=== PATIENT | male | born 1955 | race Caucasian/White ===

== ENCOUNTER 2020-08-21 13:06 | Inpatient (IN) | payer MEDICARE, MEDICAID ==
[2020-08-21 13:54] LABS: #Eosinphils 0.1 thou/uL (0.0-0.7); #Lymphocytes 1.9 thou/uL (1.20-3.40); #Monocytes 0.7 thou/uL (0.11-0.59); #Neutrophils 5.4 thou/uL (1.40-6.50); %Basophils 0.2 % (0.0-1.0); %Eosinophils 1.2 % (0.0-10.0); %Lymphocytes 23.7 % (21.0-51.0); %Monocytes 8.6 % (0.0-10.0); %Neutrophils 66.3 % (42.0-75.0); Hemoglobin 12.9 g/dL (14.0-18.0); Mean Corpuscular Hemoglobin 31.9 pg (27.0-31.0); Mean Corpuscular Volume 96.5 fL (78.0-98.0); Mean Platelet Volume 7.8 fL (7.4-10.4); Platelet Count 215 thou/uL (130-400); RBC Distribution Width 12.6 % (11.5-14.5); Red Blood Cell (RBC) Count 4.04 mill/uL (4.70-6.10); White Blood Cell (WBC) Count 8.1 thou/uL (4.8-10.8)
[2020-08-21] MEDS ORDERED: levETIRAcetam in NS 1,500 MG in Premix Bag 1 BAG IVPB SCH (14:00)
[2020-08-21 14:11] LABS: ALT (SGPT) 8 U/L (8-55); AST (SGOT) 13 U/L (5-34); Albumin 3.3 g/dL (3.4-4.8); Alkaline Phosphatase 72 U/L (40-110); Anion Gap 12 mmol/L (10-20); BUN (Urea Nitrogen) 23 mg/dL (8.4-25.7); Bilirubin, Total 0.5 mg/dL (0.2-1.2); CK (CPK) 49 U/L (30-200); Calc. Creatinine Clearance 0 mL/min (70-130); Calcium 8.4 mg/dL (7.8-10.44); Carbon Dioxide 26 mmol/L (23-31); Chloride 106 mmol/L (98-107); Globulin 2.9 g/dL (2.4-3.5); Glucose 86 mg/dL (80-115); Lipase 31 U/L (8-78); Potassium 4.1 mmol/L (3.5-5.1); Protein, Total 6.2 g/dL (5.8-8.1); Sodium 140 mmol/L (136-145)
[2020-08-21 17:17] LABS: Bacteria/HPF None Seen HPF (None Seen); Bilirubin Negative (Negative); Blood, Urine 3+ (Negative); Clarity Clear (Clear); Glucose, Urine (Dipstick) Normal (Negative); Ketone, Urine Negative (Negative); Leukocyte Negative Leu/uL (Negative); Nitrite Negative (Negative); Protein, Urine (Dipstick) 70 mg/dL (Neg-Trace); Specific Gravity, Urine 1.012 (1.002-1.036); Squamous Epithelial None Seen HPF (0-3); Urobilinogen Normal mg/dL (Less than 2); WBC/HPF 0-3 HPF (0-3); pH, Urine 6.5 (5.0-9.0)
[2020-08-21] MEDS ORDERED: Lorazepam 2 MG/ML VIAL SLOW IVP PRN (17:17)
[2020-08-21 17:28] LABS: Troponin I Less than 0.010 ng/mL (< 0.028)
[2020-08-21] MEDS ORDERED: traMADol HCl 50 MG TAB PO SCH (17:45)
[2020-08-21] MEDS ORDERED: traMADol HCl 50 MG TAB ONE (17:50)
[2020-08-21] MEDS ORDERED: HYDROcodone/Acetaminophen 5/325 mg Tablet ONE (20:04)
[2020-08-21] MEDS: Sodium Chloride 0.9% 1,000 ML IV SCH (20:09)
[2020-08-21] MEDS: HYDROcodone/Acetaminophen 5/325 mg Tablet PO PRN (20:10)
[2020-08-21 20:24] LABS: Troponin I Less than 0.010 ng/mL (< 0.028)
[2020-08-21] MEDS ORDERED: Ondansetron PF 4 MG/2 ML Vial IVP PRN (21:30)
[2020-08-21] MEDS ORDERED: Ondansetron ODT 4 MG TAB SL PRN (21:30)
[2020-08-21] MEDS ORDERED: Acetaminophen 325 MG TAB PO PRN (21:30)
[2020-08-21 22:01] VITALS: BMI 18.3
[2020-08-22 02:16] LABS: SARS-CoV-2 PCR by NAA Not Detected (NotDetected)
[2020-08-22] MEDS ORDERED: Labetalol HCl 100 MG/20 ML VIAL SLOW IVP PRN (03:54)
[2020-08-22 06:53] LABS: #Eosinphils 0.1 thou/uL (0.0-0.7); #Lymphocytes 2.3 thou/uL (1.20-3.40); #Monocytes 0.6 thou/uL (0.11-0.59); #Neutrophils 4.2 thou/uL (1.40-6.50); %Basophils 0.3 % (0.0-1.0); %Eosinophils 1.9 % (0.0-10.0); %Lymphocytes 31.4 % (21.0-51.0); %Monocytes 8.7 % (0.0-10.0); %Neutrophils 57.7 % (42.0-75.0); Hemoglobin 11.9 g/dL (14.0-18.0); Mean Corpuscular HGB CONC 32.5 g/dL (32.0-36.0); Mean Corpuscular Hemoglobin 31.7 pg (27.0-31.0); Mean Corpuscular Volume 97.6 fL (78.0-98.0); Mean Platelet Volume 7.9 fL (7.4-10.4); Platelet Count 200 thou/uL (130-400); RBC Distribution Width 12.6 % (11.5-14.5); Red Blood Cell (RBC) Count 3.74 mill/uL (4.70-6.10); White Blood Cell (WBC) Count 7.3 thou/uL (4.8-10.8)
[2020-08-22 07:13] LABS: Anion Gap 11 mmol/L (10-20); BUN (Urea Nitrogen) 18 mg/dL (8.4-25.7); Calc. Creatinine Clearance 34 mL/min (70-130); Calcium 8.1 mg/dL (7.8-10.44); Carbon Dioxide 26 mmol/L (23-31); Chloride 107 mmol/L (98-107); Glucose 88 mg/dL (80-115); Magnesium 1.9 mg/dL (1.6-2.6); Potassium 3.8 mmol/L (3.5-5.1); Sodium 140 mmol/L (136-145)
[2020-08-22] MEDS: HYDROcodone/Acetaminophen 5/325 mg Tablet PO PRN (11:36)
[2020-08-22] MEDS: Sodium Chloride 0.9% 1,000 ML IV SCH (15:31)
[2020-08-22] MEDS ORDERED: Morphine 4 MG/ML VIAL SLOW IVP PRN (15:49)
[2020-08-22] MEDS ORDERED: Morphine 4 MG/ML VIAL SLOW IVP SCH (16:00)
[2020-08-22] MEDS: levETIRAcetam 500 MG TAB PO SCH (20:27)
[2020-08-22] MEDS: traMADol HCl 50 MG TAB PO SCH (20:28)
[2020-08-22] MEDS: Baclofen 10 MG TAB PO SCH (20:28)
[2020-08-22] MEDS ORDERED: Tamsulosin HCl 0.4 MG CAP PO SCH (21:00)
[2020-08-22] MEDS ORDERED: traZODone HCl 50 MG TAB PO SCH (21:00)
[2020-08-22] MEDS ORDERED: Atorvastatin Calcium 10 MG TAB PO SCH (21:00)
[2020-08-23 05:39] LABS: Hemoglobin 11.7 g/dL (14.0-18.0); Platelet Count 188 thou/uL (130-400)
[2020-08-23 06:00] LABS: Anion Gap 10 mmol/L (10-20); BUN (Urea Nitrogen) 20 mg/dL (8.4-25.7); Calc. Creatinine Clearance 36 mL/min (70-130); Carbon Dioxide 25 mmol/L (23-31); Chloride 107 mmol/L (98-107); Glucose 95 mg/dL (80-115); Potassium 3.7 mmol/L (3.5-5.1); Sodium 138 mmol/L (136-145)
[2020-08-23] MEDS ORDERED: Levothyroxine Sodium 112 MCG TAB PO SCH (06:00)
[2020-08-23 07:44] VITALS: BP 148/89; TEMP 97.8
[2020-08-23] MEDS: levETIRAcetam 500 MG TAB PO SCH (08:24)
[2020-08-23] MEDS: Baclofen 10 MG TAB PO SCH (08:24)
[2020-08-23] MEDS ORDERED: Bupropion 150 MG XL TAB PO SCH (09:00)
[2020-08-23] MEDS ORDERED: Amlodipine 5 MG TAB PO SCH (09:00)
[2020-08-23] MEDS ORDERED: Aripiprazole 2 MG TAB PO SCH (09:00)
[2020-08-23] MEDS ORDERED: Docusate 100 MG CAP PO SCH (09:00)
[2020-08-23] MEDS: traMADol HCl 50 MG TAB PO SCH (09:52)
[2020-08-23] MEDS ORDERED: Rivaroxaban 10 MG TAB PO SCH (17:00)
== END 2020-08-23 11:00 | disposition home or self-care (01) | DRG 101 ==
LOC: ERS 13:06 → ERHOLD 15:01 → 2SE 21:33 → OBSVTOIN 08-22 20:15
PROVIDERS: ADMIT Internal Medicine; ATTEND Family Medicine
DX: G40.909 Epilepsy, unspecified, not intractable, without status epilepticus (principal); I48.20 Chronic atrial fibrillation, unspecified; I69.951 Hemiplegia and hemiparesis following unspecified cerebrovascular disease affecting right dominant side; N17.9 Acute kidney failure, unspecified; Z20.822 Contact with and (suspected) exposure to COVID-19; F12.10 Cannabis abuse, uncomplicated; G89.29 Other chronic pain; J44.9 Chronic obstructive pulmonary disease, unspecified; N18.30 Chronic kidney disease, stage 3 unspecified; I12.9 Hypertensive chronic kidney disease with stage 1 through stage 4 chronic kidney disease, or unspecified chronic kidney disease; M79.606 Pain in leg, unspecified; Z79.890 Hormone replacement therapy; Z79.899 Other long term (current) drug therapy; Z79.01 Long term (current) use of anticoagulants; Z95.1 Presence of aortocoronary bypass graft; Z79.51 Long term (current) use of inhaled steroids
CPT/HCPCS: 36415; 70450; 71045; 80048; 80053; 80177; 81003; 81015; 82550; 83605; 83690; 83735; 83880; 84146; 84443; 84484; 85014; 85018; 85025; 85049; 87635; 93005; 96365; 96374; G0378; J1953; J2270; U0003; U0005

== ENCOUNTER 2020-09-22 19:42 | Emergency (ER) | payer OTHER, MEDICARE, MEDICAID ==
[2020-09-22] MEDS ORDERED: Ketorolac Tromethamine 30 MG/ML VIAL ONE (20:11)
[2020-09-22] MEDS ORDERED: Morphine 4 MG/ML VIAL ONE (20:11)
[2020-09-22 20:18] LABS: #Eosinphils 0.1 thou/uL (0.0-0.7); #Lymphocytes 1.7 thou/uL (1.20-3.40); #Monocytes 0.8 thou/uL (0.11-0.59); #Neutrophils 7.3 thou/uL (1.40-6.50); %Basophils 0.3 % (0.0-1.0); %Eosinophils 1.3 % (0.0-10.0); %Lymphocytes 17.2 % (21.0-51.0); %Monocytes 7.6 % (0.0-10.0); %Neutrophils 73.6 % (42.0-75.0); Hemoglobin 12.2 g/dL (14.0-18.0); Mean Corpuscular HGB CONC 34.2 g/dL (32.0-36.0); Mean Corpuscular Hemoglobin 33.2 pg (27.0-31.0); Mean Corpuscular Volume 97.2 fL (78.0-98.0); Mean Platelet Volume 7.8 fL (7.4-10.4); Platelet Count 172 thou/uL (130-400); RBC Distribution Width 12.6 % (11.5-14.5); Red Blood Cell (RBC) Count 3.66 mill/uL (4.70-6.10); White Blood Cell (WBC) Count 9.9 thou/uL (4.8-10.8)
[2020-09-22 20:39] LABS: ALT (SGPT) 7 U/L (8-55); AST (SGOT) 13 U/L (5-34); Albumin 3.5 g/dL (3.4-4.8); Alkaline Phosphatase 59 U/L (40-110); Anion Gap 13 mmol/L (10-20); BUN (Urea Nitrogen) 21 mg/dL (8.4-25.7); Bilirubin, Total 0.7 mg/dL (0.2-1.2); Calc. Creatinine Clearance 0 mL/min (70-130); Calcium 8.6 mg/dL (7.8-10.44); Carbon Dioxide 25 mmol/L (23-31); Chloride 104 mmol/L (98-107); Globulin 2.5 g/dL (2.4-3.5); Glucose 100 mg/dL (80-115); Potassium 4.7 mmol/L (3.5-5.1); Sodium 137 mmol/L (136-145)
[2020-09-22] MEDS ORDERED: HYDROcodone/Acetaminophen 5/325 mg Tablet ONE (22:19)
[2020-09-22 22:28] LABS: Bacteria/HPF None Seen HPF (None Seen); Bilirubin Negative (Negative); Blood, Urine 2+ (Negative); Clarity Clear (Clear); Glucose, Urine (Dipstick) Normal (Negative); Ketone, Urine Negative (Negative); Leukocyte Negative Leu/uL (Negative); Nitrite Negative (Negative); Protein, Urine (Dipstick) Negative (Neg-Trace); RBC/HPF 21-50 HPF (0-3); Specific Gravity, Urine 1.012 (1.002-1.036); Squamous Epithelial None Seen HPF (0-3); Urobilinogen Normal mg/dL (Less than 2); WBC/HPF 0-3 HPF (0-3)
== END 2020-09-22 22:34 | disposition home or self-care (01) ==
LOC: ERS 19:42
DX: S22.31XA Fracture of one rib, right side, initial encounter for closed fracture (principal); J69.0 Pneumonitis due to inhalation of food and vomit; I10 Essential (primary) hypertension; J44.9 Chronic obstructive pulmonary disease, unspecified; I48.91 Unspecified atrial fibrillation; Z86.73 Personal history of transient ischemic attack (TIA), and cerebral infarction without residual deficits; Z87.891 Personal history of nicotine dependence; Z79.899 Other long term (current) drug therapy; W01.0XXA Fall on same level from slipping, tripping and stumbling without subsequent striking against object, initial encounter
CPT/HCPCS: 36415; 71260; 74177; 80053; 81003; 81015; 85025; 96374; 96375; J1885; J2270

== ENCOUNTER 2022-04-13 22:55 | Inpatient (IN) | payer MEDICARE, MEDICAID ==
[2022-04-13 23:53] LABS: #Eosinphils 0.2 thou/uL (0.0-0.7); #Lymphocytes 1.7 thou/uL (1.20-3.40); #Monocytes 0.8 thou/uL (0.11-0.59); #Neutrophils 3.4 thou/uL (1.40-6.50); %Basophils 0.2 % (0.0-1.0); %Eosinophils 2.6 % (0.0-10.0); %Lymphocytes 27.8 % (21.0-51.0); %Monocytes 12.8 % (0.0-10.0); %Neutrophils 56.6 % (42.0-75.0); Hemoglobin 10.6 g/dL (14.0-18.0); Mean Corpuscular HGB CONC 33.4 g/dL (32.0-36.0); Mean Corpuscular Hemoglobin 32.4 pg (27.0-31.0); Mean Platelet Volume 7.5 fL (7.4-10.4); Platelet Count 197 10x3/uL (130-400); RBC Distribution Width 14.8 % (11.5-14.5); Red Blood Cell (RBC) Count 3.27 mill/uL (4.70-6.10)
[2022-04-14] MEDS ORDERED: Labetalol HCl 100 MG/20 ML VIAL ONE (00:03)
[2022-04-14 00:14] LABS: ALT (SGPT) 16 U/L (8-55); AST (SGOT) 23 U/L (5-34); Albumin 3.7 g/dL (3.4-4.8); Alkaline Phosphatase 69 U/L (40-110); Anion Gap 15 mmol/L (10-20); BUN (Urea Nitrogen) 72 mg/dL (8.4-25.7); Bilirubin, Total 0.7 mg/dL (0.2-1.2); Calc. Creatinine Clearance 0 mL/min (70-130); Calcium 8.7 mg/dL (7.8-10.44); Carbon Dioxide 25 mmol/L (23-31); Chloride 101 mmol/L (98-107); Estimated GFR 27; Globulin 3.3 g/dL (2.4-3.5); Glucose 101 mg/dL (80-115); Potassium 4.7 mmol/L (3.5-5.1); Sodium 136 mmol/L (136-145)
[2022-04-14 00:36] LABS: CKMB 2.7 ng/mL (0-6.6)
[2022-04-14] MEDS ORDERED: Ondansetron PF 4 MG/2 ML Vial ONE (00:38)
[2022-04-14 01:03] LABS: SARS-CoV-2 NAA Rapid Test Not Detected (NotDetected)
[2022-04-14] MEDS ORDERED: Furosemide 40 MG/4 ML VIAL ONE (01:52)
[2022-04-14] MEDS ORDERED: Furosemide 20 MG/2 ML VIAL ONE (01:52)
[2022-04-14] MEDS ORDERED: Ondansetron ODT 4 MG TAB PO PRN (02:45)
[2022-04-14] MEDS ORDERED: Ondansetron PF 4 MG/2 ML Vial IVP PRN (02:45)
[2022-04-14] MEDS ORDERED: Morphine 2 MG/ML VIAL SLOW IVP SCH (03:30)
[2022-04-14] MEDS ORDERED: Morphine 2 MG/ML VIAL ONE (03:39)
[2022-04-14 03:44] LABS: Troponin I 0.044 ng/mL (< 0.028)
[2022-04-14] MEDS ORDERED: Electrolyte Replacement Protocol 1 EACH FS SCH (04:00)
[2022-04-14] MEDS ORDERED: LORazepam 2 MG/ML SYR.(CARPUJECT) ONE ×2 (04:43→04:46)
[2022-04-14] MEDS ORDERED: Lorazepam 2 MG/ML VIAL SLOW IVP SCH (04:45)
[2022-04-14] MEDS ORDERED: Haloperidol Lactate 5 MG/ML VIAL ONE (04:46)
[2022-04-14] MEDS: Levothyroxine Sodium 112 MCG TAB PO SCH (06:24)
[2022-04-14 07:32] LABS: Magnesium 2.3 mg/dL (1.6-2.6)
[2022-04-14 07:36] LABS: Troponin I 0.039 ng/mL (< 0.028)
[2022-04-14] MEDS ORDERED: levETIRAcetam 500 MG TAB PO SCH (09:00)
[2022-04-14] MEDS ORDERED: Furosemide 20 MG TAB PO SCH (09:00)
[2022-04-14] MEDS ORDERED: Atorvastatin Calcium 10 MG TAB PO SCH ×2 (09:00→21:00)
[2022-04-14] MEDS ORDERED: Folic Acid 1 MG TAB PO SCH (18:15)
[2022-04-14] MEDS ORDERED: Rivaroxaban 10 MG TAB PO SCH (18:15)
[2022-04-14] MEDS ORDERED: Aspirin 81 mg Enteric Coated Tablet PO SCH (18:15)
[2022-04-14] MEDS ORDERED: Tamsulosin HCl 0.4 MG CAP PO SCH (21:00)
[2022-04-14] MEDS: Isosorbide Dinitrate 20 MG TAB PO SCH (21:33)
[2022-04-14] MEDS: levETIRAcetam 500 MG TAB PO SCH (21:33)
[2022-04-14] MEDS: Carvedilol 6.25 MG TAB PO SCH (21:33)
[2022-04-14] MEDS: hydrALAZINE 25 MG TAB PO SCH (21:35)
[2022-04-14 22:41] LABS: Bilirubin Negative (Negative); Blood, Urine 2+ (Negative); Clarity Clear (Clear); Glucose, Urine (Dipstick) Normal (Negative); Ketone, Urine Negative (Negative); Leukocyte Negative Leu/uL (Negative); Nitrite Negative (Negative); Protein, Urine (Dipstick) 300 mg/dL (Neg-Trace); Specific Gravity, Urine 1.015 (1.002-1.036); Squamous Epithelial 0-3 HPF (0-3); Urobilinogen Normal mg/dL (Less than 2); WBC/HPF 0-3 HPF (0-3)
[2022-04-14 22:48] LABS: Bacteria/HPF None Seen HPF (None Seen)
[2022-04-15] MEDS: Aspirin 81 mg Enteric Coated Tablet PO SCH ×2 (00:17→08:55)
[2022-04-15] MEDS: Folic Acid 1 MG TAB PO SCH ×2 (00:19→08:57)
[2022-04-15] MEDS: Rivaroxaban 10 MG TAB PO SCH ×2 (00:19→08:55)
[2022-04-15] MEDS: hydrALAZINE 25 MG TAB PO SCH ×3 (00:19→14:52)
[2022-04-15] MEDS: Furosemide 20 MG/2 ML VIAL SLOW IVP SCH ×2 (00:19→08:58)
[2022-04-15] MEDS: Carvedilol 6.25 MG TAB PO SCH ×3 (00:20→08:56)
[2022-04-15] MEDS: Isosorbide Dinitrate 20 MG TAB PO SCH ×3 (00:21→14:53)
[2022-04-15 05:06] LABS: #Eosinphils 0.2 thou/uL (0.0-0.7); #Lymphocytes 1.3 thou/uL (1.20-3.40); #Monocytes 0.8 thou/uL (0.11-0.59); #Neutrophils 4.7 thou/uL (1.40-6.50); %Basophils 0.5 % (0.0-1.0); %Lymphocytes 18.2 % (21.0-51.0); %Neutrophils 67.4 % (42.0-75.0); Hemoglobin 9.8 g/dL (14.0-18.0); Mean Corpuscular HGB CONC 32.8 g/dL (32.0-36.0); Mean Corpuscular Hemoglobin 31.9 pg (27.0-31.0); Mean Platelet Volume 7.7 fL (7.4-10.4); Platelet Count 186 10x3/uL (130-400); RBC Distribution Width 15.1 % (11.5-14.5); Red Blood Cell (RBC) Count 3.07 mill/uL (4.70-6.10); White Blood Cell (WBC) Count 6.9 10x3/uL (4.8-10.8)
[2022-04-15] MEDS: Levothyroxine Sodium 112 MCG TAB PO SCH (05:28)
[2022-04-15 05:29] LABS: Anion Gap 13 mmol/L (10-20); BUN (Urea Nitrogen) 72 mg/dL (8.4-25.7); Calc. Creatinine Clearance 23 mL/min (70-130); Calcium 8.2 mg/dL (7.8-10.44); Carbon Dioxide 23 mmol/L (23-31); Chloride 102 mmol/L (98-107); Estimated GFR 26; Glucose 118 mg/dL (80-115); Magnesium 2.1 mg/dL (1.6-2.6); Potassium 4.3 mmol/L (3.5-5.1); Sodium 134 mmol/L (136-145)
[2022-04-15 05:36] VITALS: BMI 19.3
[2022-04-15] MEDS: HYDROcodone/Acetaminophen 7.5/325 mg Tablet PO PRN ×2 (06:16→15:09)
[2022-04-15] MEDS: levETIRAcetam 500 MG TAB PO SCH (08:57)
[2022-04-15 12:21] VITALS: TEMP 97.4
[2022-04-15 14:09] VITALS: BP 115/70
[2022-04-16] MEDS ORDERED: Rivaroxaban 15 MG TAB PO SCH (17:00)
[2022-04-17] MEDS ORDERED: FLU VACC QS2022-23(65YR UP)/PF 240 MCG/0.7 ML SYRINGE IM ONE (09:00)
== END 2022-04-15 15:40 | disposition home or self-care (01) | DRG 291 ==
LOC: ERS 22:55 → OBSVTOIN 04-14 02:50 → ERHOLD 04-14 02:50 → 2NO 04-14 20:55
PROVIDERS: ADMIT Student in an Organized Health Care Education/Training Program; ATTEND Internal Medicine
DX: I13.0 Hypertensive heart and chronic kidney disease with heart failure and stage 1 through stage 4 chronic kidney disease, or unspecified chronic kidney disease (principal); I50.23 Acute on chronic systolic (congestive) heart failure; R64 Cachexia; I69.951 Hemiplegia and hemiparesis following unspecified cerebrovascular disease affecting right dominant side; Z68.1 Body mass index [BMI] 19.9 or less, adult; J96.11 Chronic respiratory failure with hypoxia; I48.91 Unspecified atrial fibrillation; I25.10 Atherosclerotic heart disease of native coronary artery without angina pectoris; G40.909 Epilepsy, unspecified, not intractable, without status epilepticus; D63.1 Anemia in chronic kidney disease; E78.5 Hyperlipidemia, unspecified; F32.A Depression, unspecified; N18.30 Chronic kidney disease, stage 3 unspecified; E03.9 Hypothyroidism, unspecified; Z99.2 Dependence on renal dialysis; Z79.82 Long term (current) use of aspirin; Z79.899 Other long term (current) drug therapy; Z95.1 Presence of aortocoronary bypass graft
CPT/HCPCS: 36415; 71045; 80048; 80053; 81001; 82553; 83735; 83880; 84484; 85025; 86140; 93005; 96374; 96375; 96376; G0378; J1630; J1940; J2060; J2272; J2405

== ENCOUNTER 2022-05-06 20:35 | Inpatient (IN) | payer MEDICARE, MEDICAID ==
[2022-05-06 21:43] LABS: #Lymphocytes 0.9 thou/uL (1.20-3.40); #Monocytes 0.3 thou/uL (0.11-0.59); #Neutrophils 4.4 thou/uL (1.40-6.50); %Basophils 0.1 % (0.0-1.0); %Eosinophils 0.7 % (0.0-10.0); %Lymphocytes 15.6 % (21.0-51.0); %Monocytes 5.5 % (0.0-10.0); %Neutrophils 78.1 % (42.0-75.0); Hemoglobin 10.8 g/dL (14.0-18.0); Mean Corpuscular HGB CONC 32.3 g/dL (32.0-36.0); Mean Corpuscular Hemoglobin 30.4 pg (27.0-31.0); Mean Corpuscular Volume 94.2 fl (78.0-98.0); Mean Platelet Volume 7.5 fL (7.4-10.4); Platelet Count 190 10x3/uL (130-400); RBC Distribution Width 15.2 % (11.5-14.5); Red Blood Cell (RBC) Count 3.57 mill/uL (4.70-6.10); White Blood Cell (WBC) Count 5.7 10x3/uL (4.8-10.8)
[2022-05-06] MEDS ORDERED: Morphine 4 MG/ML VIAL ONE (21:48)
[2022-05-06 21:55] LABS: INR-International Normal Ratio 2.4; PTT 38.6 sec (22.9-36.1); Prothrombin Time 27.5 sec (12.0-14.7)
[2022-05-06 22:03] LABS: ALT (SGPT) 29 U/L (8-55); AST (SGOT) 27 U/L (5-34); Albumin 3.6 g/dL (3.4-4.8); Alkaline Phosphatase 69 U/L (40-110); Anion Gap 14 mmol/L (10-20); BUN (Urea Nitrogen) 70 mg/dL (8.4-25.7); Bilirubin, Total 0.8 mg/dL (0.2-1.2); CK (CPK) 175 U/L (30-200); Calc. Creatinine Clearance 0 mL/min (70-130); Calcium 8.6 mg/dL (7.8-10.44); Carbon Dioxide 22 mmol/L (23-31); Chloride 103 mmol/L (98-107); Estimated GFR 25; Globulin 3.2 g/dL (2.4-3.5); Glucose 140 mg/dL (80-115); Potassium 5.1 mmol/L (3.5-5.1); Protein, Total 6.8 g/dL (5.8-8.1); Sodium 134 mmol/L (136-145)
[2022-05-06 22:40] LABS: CKMB 4.4 ng/mL (0-6.6)
[2022-05-06 23:26] LABS: Lactic Acid 1.6 mmol/L (0.5-2.2)
[2022-05-07 00:05] LABS: Bacteria/HPF None Seen HPF (None Seen); Bilirubin Negative (Negative); Blood, Urine Negative (Negative); Clarity Clear (Clear); Glucose, Urine (Dipstick) Normal (Negative); Ketone, Urine Negative (Negative); Leukocyte Negative Leu/uL (Negative); Nitrite Negative (Negative); Protein, Urine (Dipstick) 300 mg/dL (Neg-Trace); Specific Gravity, Urine 1.014 (1.002-1.036); Squamous Epithelial None Seen HPF (0-3); Urobilinogen Normal mg/dL (Less than 2); WBC/HPF 0-3 HPF (0-3)
[2022-05-07] MEDS ORDERED: Furosemide 40 MG/4 ML VIAL SLOW IVP SCH ×2 (00:15→09:00)
[2022-05-07] MEDS ORDERED: Ondansetron PF 4 MG/2 ML Vial IVP PRN (00:18)
[2022-05-07] MEDS ORDERED: Ondansetron ODT 4 MG TAB PO PRN (00:18)
[2022-05-07] MEDS ORDERED: Acetaminophen 650 MG Suppository PR PRN (00:18)
[2022-05-07] MEDS ORDERED: hydrALAZINE 20 MG/ML VIAL SLOW IVP SCH (00:30)
[2022-05-07] MEDS ORDERED: Ipratropium/Albuterol 3 ML NEB NEB PRN (00:32)
[2022-05-07 01:24] LABS: Troponin I 0.041 ng/mL (< 0.028)
[2022-05-07 01:29] LABS: SARS-CoV-2 NAA Rapid Test Not Detected (NotDetected)
[2022-05-07 02:38] VITALS: BMI 20.9
[2022-05-07] MEDS: Ipratropium/Albuterol 3 ML NEB NEB SCH ×6 (02:55→23:47)
[2022-05-07 05:28] LABS: #Lymphocytes 0.4 thou/uL (1.20-3.40); #Neutrophils 2.5 thou/uL (1.40-6.50); %Eosinophils 0.1 % (0.0-10.0); %Lymphocytes 15.1 % (21.0-51.0); %Monocytes 0.7 % (0.0-10.0); %Neutrophils 84.1 % (42.0-75.0); Hemoglobin 11.7 g/dL (14.0-18.0); Mean Corpuscular HGB CONC 32.6 g/dL (32.0-36.0); Mean Corpuscular Hemoglobin 30.1 pg (27.0-31.0); Mean Corpuscular Volume 92.3 fl (78.0-98.0); Mean Platelet Volume 7.8 fL (7.4-10.4); Platelet Count 194 10x3/uL (130-400); RBC Distribution Width 15.4 % (11.5-14.5); Red Blood Cell (RBC) Count 3.88 mill/uL (4.70-6.10); White Blood Cell (WBC) Count 2.9 10x3/uL (4.8-10.8)
[2022-05-07] MEDS: Carvedilol 6.25 MG TAB PO SCH ×2 (06:33→16:31)
[2022-05-07 07:08] LABS: Chloride 103 mmol/L (98-107); Potassium 4.6 mmol/L (3.5-5.1); Sodium 135 mmol/L (136-145)
[2022-05-07 07:09] LABS: Calcium 8.6 mg/dL (7.8-10.44); Glucose 125 mg/dL (80-115)
[2022-05-07 07:11] LABS: Anion Gap 18 mmol/L (10-20); Carbon Dioxide 19 mmol/L (23-31)
[2022-05-07 07:13] LABS: BUN (Urea Nitrogen) 68 mg/dL (8.4-25.7); Calc. Creatinine Clearance 24 mL/min (70-130); Estimated GFR 27
[2022-05-07 07:14] LABS: Magnesium 2.2 mg/dL (1.6-2.6)
[2022-05-07] MEDS: levETIRAcetam 500 MG TAB PO SCH ×2 (08:30→20:25)
[2022-05-07] MEDS: Acetaminophen 325 MG TAB PO PRN ×2 (08:32→16:30)
[2022-05-07] MEDS: Isosorbide Dinitrate 20 MG TAB PO SCH ×3 (08:33→20:25)
[2022-05-07] MEDS ORDERED: hydrALAZINE 25 MG TAB PO SCH ×3 (09:00→10:30)
[2022-05-07] MEDS ORDERED: FLU VACC QS2022-23(65YR UP)/PF 240 MCG/0.7 ML SYRINGE IM ONE (09:00)
[2022-05-07] MEDS: Rivaroxaban 15 MG TAB PO SCH (16:30)
[2022-05-07] MEDS: hydrALAZINE 25 MG TAB PO SCH ×2 (16:31→20:25)
[2022-05-07 17:17] LABS: Creatinine, Urine 49.04 mg/dL (63-166)
[2022-05-07] MEDS: HYDROcodone/Acetaminophen 7.5/325 mg Tablet PO PRN (20:25)
[2022-05-07] MEDS: Atorvastatin Calcium 20 MG TAB PO SCH (20:26)
[2022-05-08] MEDS: cefTRIAXone\\ROCEPHIN 1 GM in Sodium Chloride 0.9% 100 ML IVPB SCH (02:11)
[2022-05-08] MEDS: Ipratropium/Albuterol 3 ML NEB NEB SCH ×6 (03:28→22:31)
[2022-05-08 06:28] LABS: #Lymphocytes 0.9 thou/uL (1.20-3.40); #Monocytes 0.8 thou/uL (0.11-0.59); #Neutrophils 5.5 thou/uL (1.40-6.50); %Basophils 0.1 % (0.0-1.0); %Eosinophils 0.1 % (0.0-10.0); %Lymphocytes 12.1 % (21.0-51.0); %Monocytes 10.7 % (0.0-10.0); Hemoglobin 10.4 g/dL (14.0-18.0); Mean Corpuscular HGB CONC 31.8 g/dL (32.0-36.0); Mean Corpuscular Hemoglobin 29.6 pg (27.0-31.0); Mean Platelet Volume 7.7 fL (7.4-10.4); Platelet Count 201 10x3/uL (130-400); RBC Distribution Width 15.3 % (11.5-14.5); Red Blood Cell (RBC) Count 3.52 mill/uL (4.70-6.10); White Blood Cell (WBC) Count 7.1 10x3/uL (4.8-10.8)
[2022-05-08 06:36] LABS: Iron 19 ug/dL (65-175); Iron Binding Capacity, Total 291 mcg/dL (261-462)
[2022-05-08 06:51] LABS: Anion Gap 16 mmol/L (10-20); BUN (Urea Nitrogen) 83 mg/dL (8.4-25.7); Calc. Creatinine Clearance 21 mL/min (70-130); Calcium 8.3 mg/dL (7.8-10.44); Carbon Dioxide 23 mmol/L (23-31); Chloride 98 mmol/L (98-107); Estimated GFR 22; Glucose 107 mg/dL (80-115); Potassium 4.6 mmol/L (3.5-5.1); Sodium 132 mmol/L (136-145)
[2022-05-08 06:55] LABS: Ferritin 135.18 ng/mL (22-322)
[2022-05-08 06:56] LABS: Vitamin D, 25 Hydroxy 38.8 ng/ml (> 30.0)
[2022-05-08] MEDS ORDERED: Furosemide 40 MG TAB PO SCH (07:30)
[2022-05-08] MEDS: Isosorbide Dinitrate 20 MG TAB PO SCH ×3 (08:39→20:55)
[2022-05-08] MEDS: hydrALAZINE 25 MG TAB PO SCH ×3 (08:40→20:54)
[2022-05-08] MEDS: Carvedilol 6.25 MG TAB PO SCH ×2 (08:40→16:37)
[2022-05-08] MEDS: levETIRAcetam 500 MG TAB PO SCH ×2 (08:40→20:55)
[2022-05-08] MEDS: HYDROcodone/Acetaminophen 7.5/325 mg Tablet PO PRN ×2 (11:20→20:53)
[2022-05-08] MEDS: Acetaminophen 325 MG TAB PO PRN (14:26)
[2022-05-08] MEDS: Rivaroxaban 15 MG TAB PO SCH (16:37)
[2022-05-08] MEDS ORDERED: Morphine 2 MG/ML VIAL SLOW IVP PRN (16:47)
[2022-05-08] MEDS ORDERED: Baclofen 10 MG TAB PO SCH (19:45)
[2022-05-08] MEDS: Atorvastatin Calcium 20 MG TAB PO SCH (20:55)
[2022-05-09] MEDS: cefTRIAXone\\ROCEPHIN 1 GM in Sodium Chloride 0.9% 100 ML IVPB SCH (01:14)
[2022-05-09] MEDS: Ipratropium/Albuterol 3 ML NEB NEB SCH ×5 (02:13→22:45)
[2022-05-09 05:32] LABS: #Eosinphils 0.1 thou/uL (0.0-0.7); #Lymphocytes 0.7 thou/uL (1.20-3.40); #Monocytes 0.7 thou/uL (0.11-0.59); #Neutrophils 6.3 thou/uL (1.40-6.50); %Lymphocytes 9.5 % (21.0-51.0); %Monocytes 8.9 % (0.0-10.0); %Neutrophils 80.7 % (42.0-75.0); Hemoglobin 8.8 g/dL (14.0-18.0); Mean Corpuscular HGB CONC 31.5 g/dL (32.0-36.0); Mean Corpuscular Hemoglobin 29.7 pg (27.0-31.0); Mean Corpuscular Volume 94.2 fl (78.0-98.0); Mean Platelet Volume 7.2 fL (7.4-10.4); Platelet Count 165 10x3/uL (130-400); RBC Distribution Width 15.3 % (11.5-14.5); Red Blood Cell (RBC) Count 2.97 mill/uL (4.70-6.10); White Blood Cell (WBC) Count 7.8 10x3/uL (4.8-10.8)
[2022-05-09 05:50] LABS: Anion Gap 14 mmol/L (10-20); BUN (Urea Nitrogen) 81 mg/dL (8.4-25.7); Calc. Creatinine Clearance 23 mL/min (70-130); Carbon Dioxide 23 mmol/L (23-31); Chloride 101 mmol/L (98-107); Estimated GFR 24; Glucose 96 mg/dL (80-115); Potassium 4.2 mmol/L (3.5-5.1); Sodium 134 mmol/L (136-145)
[2022-05-09] MEDS: levETIRAcetam 500 MG TAB PO SCH ×2 (08:58→20:48)
[2022-05-09] MEDS: hydrALAZINE 25 MG TAB PO SCH ×3 (08:59→20:47)
[2022-05-09] MEDS: Carvedilol 6.25 MG TAB PO SCH ×2 (08:59→17:11)
[2022-05-09] MEDS: Isosorbide Dinitrate 20 MG TAB PO SCH ×3 (08:59→20:48)
[2022-05-09] MEDS: Calcitriol 0.25 MCG CAP PO SCH (09:00)
[2022-05-09] MEDS: HYDROcodone/Acetaminophen 7.5/325 mg Tablet PO PRN ×2 (09:01→20:47)
[2022-05-09] MEDS: Acetaminophen 325 MG TAB PO PRN (14:05)
[2022-05-09] MEDS: Rivaroxaban 15 MG TAB PO SCH (17:12)
[2022-05-09] MEDS: Cyclobenzaprine 10 MG TAB PO PRN (20:48)
[2022-05-09] MEDS: Atorvastatin Calcium 20 MG TAB PO SCH (20:48)
[2022-05-10] MEDS: Ipratropium/Albuterol 3 ML NEB NEB SCH ×2 (02:04→11:01)
[2022-05-10 05:58] LABS: #Eosinphils 0.2 thou/uL (0.0-0.7); #Lymphocytes 0.9 thou/uL (1.20-3.40); #Monocytes 0.7 thou/uL (0.11-0.59); #Neutrophils 3.8 thou/uL (1.40-6.50); %Basophils 0.3 % (0.0-1.0); %Eosinophils 3.6 % (0.0-10.0); %Neutrophils 68.2 % (42.0-75.0); Hemoglobin 8.8 g/dL (14.0-18.0); Mean Corpuscular HGB CONC 32.3 g/dL (32.0-36.0); Mean Corpuscular Hemoglobin 30.3 pg (27.0-31.0); Mean Corpuscular Volume 93.8 fl (78.0-98.0); Mean Platelet Volume 7.8 fL (7.4-10.4); Platelet Count 166 10x3/uL (130-400); RBC Distribution Width 15.2 % (11.5-14.5); Red Blood Cell (RBC) Count 2.91 mill/uL (4.70-6.10); White Blood Cell (WBC) Count 5.5 10x3/uL (4.8-10.8)
[2022-05-10 06:20] LABS: Anion Gap 13 mmol/L (10-20); BUN (Urea Nitrogen) 71 mg/dL (8.4-25.7); Calc. Creatinine Clearance 25 mL/min (70-130); Carbon Dioxide 23 mmol/L (23-31); Chloride 104 mmol/L (98-107); Estimated GFR 27; Glucose 92 mg/dL (80-115); Potassium 4.5 mmol/L (3.5-5.1); Sodium 135 mmol/L (136-145)
[2022-05-10] MEDS ORDERED: Ipratropium/Albuterol 3 ML NEB NEB PRN ×2 (08:09→08:30)
[2022-05-10] MEDS: levETIRAcetam 500 MG TAB PO SCH (09:07)
[2022-05-10] MEDS: hydrALAZINE 25 MG TAB PO SCH ×2 (09:07→15:06)
[2022-05-10] MEDS: Isosorbide Dinitrate 20 MG TAB PO SCH ×2 (09:08→15:08)
[2022-05-10] MEDS: Calcitriol 0.25 MCG CAP PO SCH (09:08)
[2022-05-10] MEDS: Carvedilol 6.25 MG TAB PO SCH ×2 (09:08→18:21)
[2022-05-10 12:27] VITALS: TEMP 98
[2022-05-10] MEDS: Cyclobenzaprine 10 MG TAB PO PRN (15:07)
[2022-05-10] MEDS: HYDROcodone/Acetaminophen 7.5/325 mg Tablet PO PRN (15:07)
[2022-05-10 16:36] VITALS: BP 147/93
[2022-05-10] MEDS: Rivaroxaban 15 MG TAB PO SCH (18:21)
== END 2022-05-10 18:30 | DRG 291 ==
LOC: ERS 20:35 → ERHOLD 23:28 → NEURO 05-07 00:27 → ERHOLD 05-07 00:28 → NEURO 05-07 00:56 → OBSVTOIN 05-07 10:12
PROVIDERS: ADMIT Student in an Organized Health Care Education/Training Program; ATTEND Family Medicine
DX: I13.0 Hypertensive heart and chronic kidney disease with heart failure and stage 1 through stage 4 chronic kidney disease, or unspecified chronic kidney disease (principal); I50.43 Acute on chronic combined systolic (congestive) and diastolic (congestive) heart failure; J96.01 Acute respiratory failure with hypoxia; N17.9 Acute kidney failure, unspecified; N18.4 Chronic kidney disease, stage 4 (severe); J44.1 Chronic obstructive pulmonary disease with (acute) exacerbation; I48.21 Permanent atrial fibrillation; E87.1 Hypo-osmolality and hyponatremia; N25.81 Secondary hyperparathyroidism of renal origin; I25.10 Atherosclerotic heart disease of native coronary artery without angina pectoris; G40.909 Epilepsy, unspecified, not intractable, without status epilepticus; D63.1 Anemia in chronic kidney disease; E88.09 Other disorders of plasma-protein metabolism, not elsewhere classified; E78.5 Hyperlipidemia, unspecified; I34.0 Nonrheumatic mitral (valve) insufficiency; I42.8 Other cardiomyopathies; Z20.822 Contact with and (suspected) exposure to COVID-19; Z79.899 Other long term (current) drug therapy; Z95.1 Presence of aortocoronary bypass graft; Z79.01 Long term (current) use of anticoagulants; Z86.73 Personal history of transient ischemic attack (TIA), and cerebral infarction without residual deficits; Z98.890 Other specified postprocedural states; Z87.891 Personal history of nicotine dependence
CPT/HCPCS: 36415; 71045; 80048; 80053; 81001; 82306; 82550; 82553; 82570; 82728; 83540; 83550; 83605; 83735; 83880; 83970; 84156; 84443; 84484; 85025; 85610; 85730; 87040; 87077; 87086; 87149; 87186; 93005; 94640; 94760; 96374; 96375; 97139; G0378; J0360; J0696; J1940; J2270; J2272; J3490; J7620

== ENCOUNTER 2022-05-14 04:54 | Observation (INO) | payer MEDICARE, MEDICAID ==
[2022-05-14] MEDS ORDERED: Haloperidol Lactate 5 MG/ML VIAL ONE (06:16)
[2022-05-14] MEDS ORDERED: LORazepam 2 MG/ML SYR.(CARPUJECT) ONE (06:16)
[2022-05-14 06:26] LABS: #Eosinphils 0.2 thou/uL (0.0-0.7); #Lymphocytes 1.1 thou/uL (1.20-3.40); #Monocytes 0.6 thou/uL (0.11-0.59); #Neutrophils 2.7 thou/uL (1.40-6.50); %Basophils 0.7 % (0.0-1.0); %Eosinophils 4.7 % (0.0-10.0); %Lymphocytes 23.2 % (21.0-51.0); %Monocytes 13.4 % (0.0-10.0); Hemoglobin 9.6 g/dL (14.0-18.0); Mean Corpuscular HGB CONC 31.5 g/dL (32.0-36.0); Mean Corpuscular Hemoglobin 29.2 pg (27.0-31.0); Mean Corpuscular Volume 92.5 fl (78.0-98.0); Mean Platelet Volume 7.1 fL (7.4-10.4); Platelet Count 184 10x3/uL (130-400); RBC Distribution Width 15.3 % (11.5-14.5); White Blood Cell (WBC) Count 4.7 10x3/uL (4.8-10.8)
[2022-05-14 06:36] LABS: Bacteria/HPF None Seen HPF (None Seen); Bilirubin Negative (Negative); Blood, Urine Trace (Negative); Clarity Clear (Clear); Glucose, Urine (Dipstick) Normal (Negative); Ketone, Urine Negative (Negative); Leukocyte Negative Leu/uL (Negative); Nitrite Negative (Negative); Protein, Urine (Dipstick) 200 mg/dL (Neg-Trace); Specific Gravity, Urine 1.016 (1.002-1.036); Squamous Epithelial None Seen HPF (0-3); Urobilinogen Normal mg/dL (Less than 2); WBC/HPF 0-3 HPF (0-3)
[2022-05-14 06:48] LABS: Albumin 3.4 g/dL (3.4-4.8); Anion Gap 11 mmol/L (10-20); BUN (Urea Nitrogen) 51 mg/dL (8.4-25.7); Bilirubin, Total 0.6 mg/dL (0.2-1.2); Calc. Creatinine Clearance 0 mL/min (70-130); Calcium 8.4 mg/dL (7.8-10.44); Carbon Dioxide 28 mmol/L (23-31); Chloride 100 mmol/L (98-107); Estimated GFR 34; Glucose 97 mg/dL (80-115); Protein, Total 6.4 g/dL (5.8-8.1); Sodium 135 mmol/L (136-145)
[2022-05-14 06:49] LABS: ALT (SGPT) 21 U/L (8-55); AST (SGOT) 23 U/L (5-34); Alkaline Phosphatase 72 U/L (40-110); Lipase 80 U/L (8-78); Magnesium 2.2 mg/dL (1.6-2.6)
[2022-05-14 07:09] LABS: CKMB 3.5 ng/mL (0-6.6)
[2022-05-14] MEDS ORDERED: Furosemide 40 MG/4 ML VIAL ONE ×2 (07:38→13:54)
[2022-05-14 09:07] LABS: SARS-CoV-2 NAA Rapid Test Not Detected (NotDetected)
[2022-05-14 10:21] LABS: Troponin I 0.064 ng/mL (< 0.028)
[2022-05-14 12:44] LABS: Troponin I 0.044 ng/mL (< 0.028)
[2022-05-14] MEDS ORDERED: Nitrazine Tape 1 ROLL ONE (13:17)
[2022-05-14] MEDS ORDERED: Nitroglycerin 2% Ointment 1 INCH/1 GM Packet ONE (13:17)
[2022-05-14] MEDS ORDERED: Ipratropium/Albuterol 3 ML NEB ONE (13:48)
[2022-05-14] MEDS ORDERED: cefTRIAXone\\ROCEPHIN 2 GM VIAL ONE (13:54)
[2022-05-14] MEDS: Ipratropium/Albuterol 3 ML NEB NEB SCH ×2 (13:55→19:28)
[2022-05-14] MEDS ORDERED: hydrALAZINE 25 MG TAB ONE (13:56)
[2022-05-14] MEDS ORDERED: cefTRIAXone\\ROCEPHIN 1 GM VIAL ONE (13:56)
[2022-05-14] MEDS ORDERED: methylPREDNISolone Sod Succ 40 MG VIAL ONE (13:58)
[2022-05-14] MEDS: methylPREDNISolone Sod Succ 40 MG VIAL IVP SCH ×2 (14:04→22:02)
[2022-05-14] MEDS: cefTRIAXone\\ROCEPHIN 1 GM in Sodium Chloride 0.9% 100 ML IVPB SCH (14:04)
[2022-05-14] MEDS: Furosemide 40 MG/4 ML VIAL SLOW IVP SCH (14:04)
[2022-05-14] MEDS: hydrALAZINE 25 MG TAB PO SCH ×2 (14:05→20:20)
[2022-05-14] MEDS: Isosorbide Dinitrate 20 MG TAB PO SCH ×2 (15:54→20:20)
[2022-05-14] MEDS: Carvedilol 6.25 MG TAB PO SCH (16:09)
[2022-05-14] MEDS: Rivaroxaban 15 MG TAB PO SCH (16:10)
[2022-05-14 17:00] LABS: Troponin I 0.069 ng/mL (< 0.028)
[2022-05-14 18:02] VITALS: BMI 26.9
[2022-05-14] MEDS ORDERED: HYDROcodone/Acetaminophen 5/325 mg Tablet PO SCH (20:00)
[2022-05-14] MEDS: levETIRAcetam 500 MG TAB PO SCH (20:21)
[2022-05-14] MEDS ORDERED: Baclofen 10 MG TAB PO SCH (22:45)
[2022-05-15] MEDS ORDERED: HYDROcodone/Acetaminophen 5/325 mg Tablet PO SCH (04:30)
[2022-05-15] MEDS ORDERED: HYDROcodone/Acetaminophen 5/325 mg Tablet ONE (04:38)
[2022-05-15 05:44] LABS: #Lymphocytes 0.6 thou/uL (1.20-3.40); #Monocytes 0.1 thou/uL (0.11-0.59); #Neutrophils 2.4 thou/uL (1.40-6.50); %Basophils 0.2 % (0.0-1.0); %Eosinophils 0.1 % (0.0-10.0); %Lymphocytes 19.1 % (21.0-51.0); %Monocytes 4.2 % (0.0-10.0); %Neutrophils 76.4 % (42.0-75.0); Hemoglobin 9.5 g/dL (14.0-18.0); Mean Corpuscular HGB CONC 32.1 g/dL (32.0-36.0); Mean Corpuscular Hemoglobin 29.6 pg (27.0-31.0); Mean Platelet Volume 7.5 fL (7.4-10.4); Platelet Count 191 10x3/uL (130-400); RBC Distribution Width 15.3 % (11.5-14.5); Red Blood Cell (RBC) Count 3.22 mill/uL (4.70-6.10); White Blood Cell (WBC) Count 3.2 10x3/uL (4.8-10.8)
[2022-05-15] MEDS ORDERED: Levothyroxine Sodium 100 MCG TAB PO SCH (06:00)
[2022-05-15 06:01] LABS: Anion Gap 14 mmol/L (10-20); BUN (Urea Nitrogen) 58 mg/dL (8.4-25.7); Calc. Creatinine Clearance 35 mL/min (70-130); Calcium 8.1 mg/dL (7.8-10.44); Carbon Dioxide 23 mmol/L (23-31); Chloride 101 mmol/L (98-107); Estimated GFR 28; Glucose 174 mg/dL (80-115); Potassium 4.7 mmol/L (3.5-5.1); Sodium 133 mmol/L (136-145)
[2022-05-15] MEDS: Furosemide 40 MG/4 ML VIAL SLOW IVP SCH ×2 (06:15→16:34)
[2022-05-15] MEDS: methylPREDNISolone Sod Succ 40 MG VIAL IVP SCH ×2 (06:15→16:36)
[2022-05-15] MEDS: Ipratropium/Albuterol 3 ML NEB NEB SCH ×4 (07:53→19:13)
[2022-05-15] MEDS: levETIRAcetam 500 MG TAB PO SCH (08:32)
[2022-05-15] MEDS: Carvedilol 6.25 MG TAB PO SCH ×2 (08:33→17:29)
[2022-05-15] MEDS: Isosorbide Dinitrate 20 MG TAB PO SCH ×2 (08:33→16:37)
[2022-05-15] MEDS: hydrALAZINE 25 MG TAB PO SCH ×2 (08:33→17:29)
[2022-05-15] MEDS ORDERED: Tamsulosin HCl 0.4 MG CAP PO SCH (09:00)
[2022-05-15 16:02] VITALS: TEMP 98
[2022-05-15] MEDS: cefTRIAXone\\ROCEPHIN 1 GM in Sodium Chloride 0.9% 100 ML IVPB SCH (16:36)
[2022-05-15] MEDS: Rivaroxaban 15 MG TAB PO SCH (16:37)
[2022-05-15 17:29] VITALS: BP 153/106
== END 2022-05-15 19:10 ==
LOC: ERS 04:54 → ERHOLD 07:56 → INTOOBSV 07:56 → NEURO 17:40 → 2NO 05-15 10:58
PROVIDERS: ADMIT Internal Medicine; ATTEND Internal Medicine
DX: I13.0 Hypertensive heart and chronic kidney disease with heart failure and stage 1 through stage 4 chronic kidney disease, or unspecified chronic kidney disease (principal); N18.30 Chronic kidney disease, stage 3 unspecified; I50.23 Acute on chronic systolic (congestive) heart failure; J44.1 Chronic obstructive pulmonary disease with (acute) exacerbation; J96.01 Acute respiratory failure with hypoxia; I48.91 Unspecified atrial fibrillation; G40.909 Epilepsy, unspecified, not intractable, without status epilepticus; I25.10 Atherosclerotic heart disease of native coronary artery without angina pectoris; I69.351 Hemiplegia and hemiparesis following cerebral infarction affecting right dominant side; R18.8 Other ascites; F12.10 Cannabis abuse, uncomplicated; Z87.891 Personal history of nicotine dependence; Z79.01 Long term (current) use of anticoagulants; Z79.890 Hormone replacement therapy; Z79.899 Other long term (current) drug therapy; Z20.822 Contact with and (suspected) exposure to COVID-19
CPT/HCPCS: 70450; 71045; 71250; 80048; 80053; 82553; 83690; 83735; 83880; 84484 ×2; 85025 ×2; 93005; 93971; 94640 ×3; 96374; 96375; 96376 ×3; 99285; G0378 ×3; J2060; U0002; 36415; 81003; 81015; J0696; J1630; J1940; J2920; J3490; J7620

== ENCOUNTER 2022-06-04 14:52 | Emergency (ER) | payer MEDICARE, MEDICAID ==
[2022-06-04] MEDS ORDERED: Furosemide 40 MG/4 ML VIAL ONE (16:07)
[2022-06-04 16:13] LABS: #Eosinphils 0.1 thou/uL (0.0-0.7); #Lymphocytes 1.4 thou/uL (1.20-3.40); #Monocytes 0.7 thou/uL (0.11-0.59); #Neutrophils 3.5 thou/uL (1.40-6.50); %Basophils 0.6 % (0.0-1.0); %Eosinophils 1.5 % (0.0-10.0); %Lymphocytes 23.8 % (21.0-51.0); %Neutrophils 61.2 % (42.0-75.0); Hemoglobin 9.2 g/dL (14.0-18.0); Mean Corpuscular HGB CONC 31.6 g/dL (32.0-36.0); Mean Corpuscular Hemoglobin 28.8 pg (27.0-31.0); Mean Platelet Volume 8.3 fL (7.4-10.4); Platelet Count 169 10x3/uL (130-400); RBC Distribution Width 16.3 % (11.5-14.5); Red Blood Cell (RBC) Count 3.21 mill/uL (4.70-6.10); White Blood Cell (WBC) Count 5.7 10x3/uL (4.8-10.8)
[2022-06-04 16:37] LABS: ALT (SGPT) 12 U/L (8-55); AST (SGOT) 16 U/L (5-34); Alkaline Phosphatase 60 U/L (40-110); Anion Gap 17 mmol/L (10-20); BUN (Urea Nitrogen) 61 mg/dL (8.4-25.7); Bilirubin, Total 0.9 mg/dL (0.2-1.2); Calc. Creatinine Clearance 0 mL/min (70-130); Calcium 8.5 mg/dL (7.8-10.44); Carbon Dioxide 20 mmol/L (23-31); Chloride 106 mmol/L (98-107); Estimated GFR 32; Globulin 2.9 g/dL (2.4-3.5); Glucose 103 mg/dL (80-115); Potassium 4.6 mmol/L (3.5-5.1); Protein, Total 5.9 g/dL (5.8-8.1); Sodium 138 mmol/L (136-145)
[2022-06-04 17:01] LABS: Bacteria/HPF None Seen HPF (None Seen); Bilirubin Negative (Negative); Blood, Urine Negative (Negative); Clarity Clear (Clear); Glucose, Urine (Dipstick) Normal (Negative); Ketone, Urine Negative (Negative); Leukocyte Negative Leu/uL (Negative); Nitrite Negative (Negative); Protein, Urine (Dipstick) 100 mg/dL (Neg-Trace); RBC/HPF 0-3 HPF (0-3); Squamous Epithelial None Seen HPF (0-3); Urobilinogen Normal mg/dL (Less than 2); WBC/HPF 0-3 HPF (0-3)
== END 2022-06-04 18:37 | disposition home or self-care (01) ==
LOC: ERS 14:52
DX: I50.9 Heart failure, unspecified (principal); I11.0 Hypertensive heart disease with heart failure; J44.9 Chronic obstructive pulmonary disease, unspecified; Z87.891 Personal history of nicotine dependence; Z79.899 Other long term (current) drug therapy
CPT/HCPCS: 36415; 71045; 80053; 81003; 81015; 83880; 85025; 93970; 94760; 96374; J1940

== ENCOUNTER 2023-01-30 18:58 | Inpatient (IN) | payer MEDICARE, MEDICAID ==
[2023-01-30 19:41] LABS: #Eosinphils 0.1 thou/uL (0.0-0.7); #Monocytes 0.6 thou/uL (0.11-0.59); #Neutrophils 4.9 thou/uL (1.40-6.50); %Basophils 0.6 % (0.0-1.0); %Eosinophils 1.5 % (0.0-10.0); %Lymphocytes 18.1 % (21.0-51.0); %Neutrophils 70.7 % (42.0-75.0); Hemoglobin 12.7 g/dL (14.0-18.0); Mean Corpuscular HGB CONC 31.8 g/dL (32.0-36.0); Mean Corpuscular Hemoglobin 29.3 pg (27.0-31.0); Mean Corpuscular Volume 92.4 fl (78.0-98.0); Platelet Count 262 10x3/uL (130-400); RBC Distribution Width 15.9 % (11.5-14.5); Red Blood Cell (RBC) Count 4.33 mill/uL (4.70-6.10); White Blood Cell (WBC) Count 6.9 10x3/uL (4.8-10.8)
[2023-01-30 20:02] LABS: Troponin I 0.047 ng/mL (< 0.028)
[2023-01-30 20:09] LABS: ALT (SGPT) 25 U/L (8-55); AST (SGOT) 21 U/L (5-34); Acetaminophen Less than 10 mcg/mL (10.0-30.0); Albumin 3.8 g/dL (3.4-4.8); Alcohol Less than 10.0 mg/dL (Less than 10); Alkaline Phosphatase 100 U/L (40-110); Anion Gap 14 mmol/L (10-20); BUN (Urea Nitrogen) 53 mg/dL (8.4-25.7); Bilirubin, Total 0.4 mg/dL (0.2-1.2); Calc. Creatinine Clearance 0 mL/min (70-130); Calcium 8.7 mg/dL (7.8-10.44); Carbon Dioxide 28 mmol/L (23-31); Chloride 99 mmol/L (98-107); Estimated GFR 30; Globulin 3.2 g/dL (2.4-3.5); Glucose 99 mg/dL (80-115); Potassium 4.2 mmol/L (3.5-5.1); Salicylate Less than 8.0 mg/dL (15.0-30.0); Sodium 137 mmol/L (136-145)
[2023-01-30] MEDS ORDERED: cefTRIAXone (ROCEPHIN) 1 GM VIAL ONE (20:33)
[2023-01-30] MEDS ORDERED: Sodium Chloride 0.9% 100 ML ONE (20:34)
[2023-01-30] MEDS ORDERED: fentaNYL 50 mcg/mL 1 mL Vial ONE (21:36)
[2023-01-30] MEDS ORDERED: Ondansetron PF 4 MG/2 ML Vial IVP PRN (23:34)
[2023-01-30] MEDS ORDERED: Carvedilol 6.25 MG TAB PO SCH (23:45)
[2023-01-31 00:18] VITALS: BMI 20.5
[2023-01-31] MEDS ORDERED: levETIRAcetam 500 MG/5 ML VIAL SLOW IVP SCH (00:30)
[2023-01-31] MEDS ORDERED: Labetalol HCl 100 MG/20 ML VIAL SLOW IVP SCH (00:45)
[2023-01-31 01:33] LABS: Bacteria/HPF 1+ HPF (None Seen); Bilirubin Negative (Negative); Blood, Urine 1+ (Negative); CAUTI Indications for Culture Alt mental st,lethar; Clarity Clear (Clear); Glucose, Urine (Dipstick) Normal (Negative); Ketone, Urine Negative (Negative); Leukocyte Negative Leu/uL (Negative); Nitrite Negative (Negative); Protein, Urine (Dipstick) 300 mg/dL (Neg-Trace); Specific Gravity, Urine 1.012 (1.002-1.036); Squamous Epithelial 0-3 HPF (0-3); Urobilinogen Normal mg/dL (Less than 2); WBC/HPF 0-3 HPF (0-3)
[2023-01-31 01:34] LABS: Urine Culture Reflex No No
[2023-01-31 03:36] LABS: Amphetamine Not Detected (NotDetected); Barbiturates Screen Not Detected (NotDetected); Benzodiazepine Screen Not Detected (NotDetected); Cocaine Metabolite Screen Not Detected (NotDetected); Methadone Not Detected (NotDetected); Methamphetamine Not Detected (NotDetected); Opiate Screen Not Detected (NotDetected); Oxycodone Screen Not Detected (NotDetected); Phencyclidine (PCP) Not Detected (NotDetected); THC/Cannabinoid Screen Detected (NotDetected); Tricyclic Screen Not Detected (NotDetected)
[2023-01-31 05:12] LABS: #Eosinphils 0.1 thou/uL (0.0-0.7); #Monocytes 0.8 thou/uL (0.11-0.59); #Neutrophils 5.4 thou/uL (1.40-6.50); %Basophils 0.5 % (0.0-1.0); %Eosinophils 1.5 % (0.0-10.0); %Lymphocytes 19.8 % (21.0-51.0); %Monocytes 9.8 % (0.0-10.0); %Neutrophils 68.3 % (42.0-75.0); Hematocrit 42.9 % (42.0-52.0); Hemoglobin 13.3 g/dL (14.0-18.0); Mean Corpuscular Hemoglobin 28.8 pg (27.0-31.0); Mean Corpuscular Volume 92.9 fl (78.0-98.0); Mean Platelet Volume 9.3 fL (7.4-10.4); Platelet Count 273 10x3/uL (130-400); Red Blood Cell (RBC) Count 4.62 mill/uL (4.70-6.10); White Blood Cell (WBC) Count 7.9 10x3/uL (4.8-10.8)
[2023-01-31 05:39] LABS: Anion Gap 18 mmol/L (10-20); BUN (Urea Nitrogen) 47 mg/dL (8.4-25.7); Calc. Creatinine Clearance 27 mL/min (70-130); Calcium 9.4 mg/dL (7.8-10.44); Carbon Dioxide 24 mmol/L (23-31); Chloride 103 mmol/L (98-107); Estimated GFR 33; Glucose 97 mg/dL (80-115); Potassium 3.9 mmol/L (3.5-5.1); Sodium 141 mmol/L (136-145)
[2023-01-31] MEDS ORDERED: hydrALAZINE 20 MG/ML VIAL SLOW IVP PRN (08:27)
[2023-01-31] MEDS ORDERED: Morphine 2 MG/ML VIAL SLOW IVP PRN (08:37)
[2023-01-31] MEDS ORDERED: levETIRAcetam 100 mg/ml Oral Solution PO SCH (09:00)
[2023-01-31] MEDS ORDERED: Non-Formulary Item 1 EACH (Levothyroxine Sodium [Levothyroxine Sodium] 100 MCG Capsule) PO SCH (09:00)
[2023-01-31] MEDS ORDERED: Aspirin 81 mg Enteric Coated Tablet PO SCH (09:00)
[2023-01-31] MEDS: levETIRAcetam 500 MG/5 ML VIAL SLOW IVP SCH ×2 (09:13→20:57)
[2023-01-31] MEDS ORDERED: Iopamidol-370 76% 500 ML MDV (1 ML CHARGE) ONE (10:19)
[2023-01-31] MEDS ORDERED: Labetalol HCl 100 MG/20 ML VIAL SLOW IVP PRN (12:14)
[2023-01-31] MEDS ORDERED: Divalproex Sodium 250 MG (DR) TAB PO SCH ×2 (13:00→21:00)
[2023-01-31] MEDS ORDERED: Lorazepam 2 MG/ML VIAL SLOW IVP SCH (13:30)
[2023-01-31] MEDS ORDERED: Valproate Sodium 1,000 MG, Admixture Fee 1 EACH in Sodium Chloride 0.9% 100 ML IVPB SCH (14:00)
[2023-01-31] MEDS ORDERED: Aspirin 300 MG Suppository PR SCH (14:45)
[2023-01-31] MEDS: Carvedilol 6.25 MG TAB PO SCH ×2 (16:29→18:09)
[2023-01-31] MEDS: Empagliflozin 10 MG TAB PO SCH (16:30)
[2023-01-31] MEDS: Tamsulosin HCl 0.4 MG CAP PO SCH (16:30)
[2023-01-31] MEDS: Isosorbide Dinitrate 20 MG TAB PO SCH ×3 (16:30→20:56)
[2023-01-31] MEDS: Folic Acid 1 MG TAB PO SCH (16:30)
[2023-01-31] MEDS: Ferrous Sulfate 325 MG TAB PO SCH (16:30)
[2023-01-31] MEDS: hydrALAZINE 25 MG TAB PO SCH ×2 (17:25→20:56)
[2023-01-31] MEDS: Sodium Chloride 0.9% 1,000 ML IV SCH (20:53)
[2023-01-31] MEDS: Atorvastatin Calcium 10 MG TAB PO SCH (20:56)
[2023-01-31] MEDS: Valproate Sodium 500 MG, Admixture Fee 1 EACH in Sodium Chloride 0.9% 100 ML IVPB SCH (21:00)
[2023-02-01 04:59] LABS: #Eosinphils 0.1 thou/uL (0.0-0.7); #Monocytes 0.3 thou/uL (0.11-0.59); #Neutrophils 4.3 thou/uL (1.40-6.50); %Basophils 0.7 % (0.0-1.0); %Eosinophils 0.8 % (0.0-10.0); %Lymphocytes 21.5 % (21.0-51.0); %Monocytes 5.6 % (0.0-10.0); %Neutrophils 71.2 % (42.0-75.0); Hemoglobin 11.6 g/dL (14.0-18.0); Mean Corpuscular HGB CONC 31.4 g/dL (32.0-36.0); Mean Corpuscular Hemoglobin 29.3 pg (27.0-31.0); Mean Corpuscular Volume 93.4 fl (78.0-98.0); Mean Platelet Volume 9.3 fL (7.4-10.4); Platelet Count 233 10x3/uL (130-400); RBC Distribution Width 16.1 % (11.5-14.5); Red Blood Cell (RBC) Count 3.96 mill/uL (4.70-6.10)
[2023-02-01 05:28] LABS: Anion Gap 14 mmol/L (10-20); BUN (Urea Nitrogen) 41 mg/dL (8.4-25.7); Calc. Creatinine Clearance 23 mL/min (70-130); Calcium 8.5 mg/dL (7.8-10.44); Carbon Dioxide 26 mmol/L (23-31); Chloride 109 mmol/L (98-107); Estimated GFR 33; Glucose 88 mg/dL (80-115); Potassium 4.3 mmol/L (3.5-5.1); Sodium 145 mmol/L (136-145)
[2023-02-01] MEDS: Levothyroxine Sodium 100 MCG TAB PO SCH (05:44)
[2023-02-01] MEDS: Rivaroxaban 15 MG TAB PO SCH (08:42)
[2023-02-01] MEDS: Carvedilol 6.25 MG TAB PO SCH ×2 (08:45→16:31)
[2023-02-01] MEDS: Amlodipine 5 MG TAB PO SCH (08:49)
[2023-02-01] MEDS: Ferrous Sulfate 325 MG TAB PO SCH (08:49)
[2023-02-01] MEDS: Folic Acid 1 MG TAB PO SCH (08:49)
[2023-02-01] MEDS: hydrALAZINE 25 MG TAB PO SCH ×3 (08:49→21:56)
[2023-02-01] MEDS: Furosemide 20 MG TAB PO SCH (08:49)
[2023-02-01] MEDS: Tamsulosin HCl 0.4 MG CAP PO SCH (08:49)
[2023-02-01] MEDS ORDERED: Aspirin 300 MG Suppository PR SCH (09:00)
[2023-02-01] MEDS: levETIRAcetam 500 MG/5 ML VIAL SLOW IVP SCH ×2 (09:05→21:57)
[2023-02-01] MEDS: Valproate Sodium 500 MG, Admixture Fee 1 EACH in Sodium Chloride 0.9% 100 ML IVPB SCH ×2 (09:05→21:57)
[2023-02-01] MEDS: Baclofen 10 MG TAB PO PRN ×2 (09:05→21:57)
[2023-02-01] MEDS ORDERED: Aspirin 81 mg Enteric Coated Tablet PO SCH (10:30)
[2023-02-01] MEDS: Isosorbide Dinitrate 20 MG TAB PO SCH (10:37)
[2023-02-01] MEDS: Empagliflozin 10 MG TAB PO SCH (10:37)
[2023-02-01] MEDS: Acetaminophen 325 MG TAB PO PRN (16:33)
[2023-02-01] MEDS: Sodium Chloride 0.9% 1,000 ML IV SCH (18:49)
[2023-02-01] MEDS: Atorvastatin Calcium 10 MG TAB PO SCH (21:56)
[2023-02-01] MEDS: Melatonin 3 MG TAB PO PRN (21:57)
[2023-02-02] MEDS: Levothyroxine Sodium 100 MCG TAB PO SCH (05:59)
[2023-02-02 07:06] LABS: #Eosinphils 0.2 thou/uL (0.0-0.7); #Monocytes 0.6 thou/uL (0.11-0.59); #Neutrophils 4.1 thou/uL (1.40-6.50); %Basophils 0.5 % (0.0-1.0); %Eosinophils 2.6 % (0.0-10.0); %Lymphocytes 20.8 % (21.0-51.0); %Monocytes 9.2 % (0.0-10.0); %Neutrophils 66.7 % (42.0-75.0); Hematocrit 37.8 % (42.0-52.0); Hemoglobin 11.8 g/dL (14.0-18.0); Mean Corpuscular HGB CONC 31.2 g/dL (32.0-36.0); Mean Corpuscular Hemoglobin 28.9 pg (27.0-31.0); Mean Corpuscular Volume 92.4 fl (78.0-98.0); Mean Platelet Volume 9.4 fL (7.4-10.4); Platelet Count 243 10x3/uL (130-400); Red Blood Cell (RBC) Count 4.09 mill/uL (4.70-6.10); White Blood Cell (WBC) Count 6.2 10x3/uL (4.8-10.8)
[2023-02-02 07:33] LABS: Anion Gap 16 mmol/L (10-20); BUN (Urea Nitrogen) 38 mg/dL (8.4-25.7); Calc. Creatinine Clearance 23 mL/min (70-130); Calcium 8.4 mg/dL (7.8-10.44); Carbon Dioxide 24 mmol/L (23-31); Chloride 109 mmol/L (98-107); Estimated GFR 34; Glucose 89 mg/dL (80-115); Potassium 3.8 mmol/L (3.5-5.1); Sodium 145 mmol/L (136-145)
[2023-02-02] MEDS: Carvedilol 6.25 MG TAB PO SCH ×2 (08:50→17:21)
[2023-02-02] MEDS: Rivaroxaban 15 MG TAB PO SCH (08:50)
[2023-02-02] MEDS: Tamsulosin HCl 0.4 MG CAP PO SCH (08:50)
[2023-02-02] MEDS: Amlodipine 5 MG TAB PO SCH (08:51)
[2023-02-02] MEDS: hydrALAZINE 25 MG TAB PO SCH ×3 (08:51→21:24)
[2023-02-02] MEDS: Folic Acid 1 MG TAB PO SCH (08:51)
[2023-02-02] MEDS: Furosemide 20 MG TAB PO SCH (08:51)
[2023-02-02] MEDS: Aspirin 81 mg Enteric Coated Tablet PO SCH (08:51)
[2023-02-02] MEDS: Valproate Sodium 500 MG, Admixture Fee 1 EACH in Sodium Chloride 0.9% 100 ML IVPB SCH ×2 (08:52→21:25)
[2023-02-02] MEDS: Ferrous Sulfate 325 MG TAB PO SCH (08:52)
[2023-02-02] MEDS: levETIRAcetam 500 MG/5 ML VIAL SLOW IVP SCH ×2 (08:52→21:24)
[2023-02-02] MEDS: Sodium Chloride 0.9% 1,000 ML IV SCH (09:00)
[2023-02-02] MEDS: Atorvastatin Calcium 10 MG TAB PO SCH (21:24)
[2023-02-03] MEDS: Sodium Chloride 0.9% 1,000 ML IV SCH (05:26)
[2023-02-03] MEDS: Levothyroxine Sodium 100 MCG TAB PO SCH (05:26)
[2023-02-03] MEDS: hydrALAZINE 25 MG TAB PO SCH ×3 (08:35→21:49)
[2023-02-03] MEDS: levETIRAcetam 500 MG/5 ML VIAL SLOW IVP SCH (08:35)
[2023-02-03] MEDS: Valproate Sodium 500 MG, Admixture Fee 1 EACH in Sodium Chloride 0.9% 100 ML IVPB SCH ×2 (08:35→21:49)
[2023-02-03] MEDS: Tamsulosin HCl 0.4 MG CAP PO SCH (08:35)
[2023-02-03] MEDS: Folic Acid 1 MG TAB PO SCH (08:35)
[2023-02-03] MEDS: Aspirin 81 mg Enteric Coated Tablet PO SCH (08:35)
[2023-02-03] MEDS: Carvedilol 6.25 MG TAB PO SCH ×2 (08:35→16:34)
[2023-02-03] MEDS: Amlodipine 5 MG TAB PO SCH (08:35)
[2023-02-03] MEDS: Ferrous Sulfate 325 MG TAB PO SCH (08:36)
[2023-02-03] MEDS: Furosemide 20 MG TAB PO SCH (08:36)
[2023-02-03] MEDS ORDERED: FLU VACC QS2023(65UP)/MF59C/PF 60 MCG/0.5 ML SYRINGE IM ONE (09:00)
[2023-02-03] MEDS ORDERED: Communication Order-Pharmacy FS PRN (09:11)
[2023-02-03] MEDS ORDERED: Communication Order-Pharmacy FS ONE (09:12)
[2023-02-03] MEDS ORDERED: Rivaroxaban 15 MG TAB PO SCH (09:45)
[2023-02-03] MEDS: Atorvastatin Calcium 10 MG TAB PO SCH (21:49)
[2023-02-03] MEDS: Baclofen 10 MG TAB PO PRN (21:49)
[2023-02-03] MEDS: Acetaminophen 325 MG TAB PO PRN (21:49)
[2023-02-03] MEDS: Melatonin 3 MG TAB PO PRN (21:49)
[2023-02-04 04:00] LABS: #Eosinphils 0.1 thou/uL (0.0-0.7); #Monocytes 0.3 thou/uL (0.11-0.59); #Neutrophils 2.3 thou/uL (1.40-6.50); %Basophils 0.8 % (0.0-1.0); %Eosinophils 3.1 % (0.0-10.0); %Lymphocytes 28.6 % (21.0-51.0); %Monocytes 8.4 % (0.0-10.0); %Neutrophils 58.8 % (42.0-75.0); Hematocrit 35.8 % (42.0-52.0); Hemoglobin 11.4 g/dL (14.0-18.0); Mean Corpuscular HGB CONC 31.8 g/dL (32.0-36.0); Mean Corpuscular Hemoglobin 29.2 pg (27.0-31.0); Mean Corpuscular Volume 91.6 fl (78.0-98.0); Mean Platelet Volume 8.7 fL (7.4-10.4); Platelet Count 196 10x3/uL (130-400); RBC Distribution Width 15.8 % (11.5-14.5); Red Blood Cell (RBC) Count 3.91 mill/uL (4.70-6.10); White Blood Cell (WBC) Count 3.9 10x3/uL (4.8-10.8)
[2023-02-04 04:26] LABS: Anion Gap 11 mmol/L (10-20); BUN (Urea Nitrogen) 32 mg/dL (8.4-25.7); Calc. Creatinine Clearance 25 mL/min (70-130); Carbon Dioxide 25 mmol/L (23-31); Chloride 105 mmol/L (98-107); Estimated GFR 38; Glucose 87 mg/dL (80-115); Potassium 3.8 mmol/L (3.5-5.1); Sodium 137 mmol/L (136-145)
[2023-02-04] MEDS: Levothyroxine Sodium 100 MCG TAB PO SCH (06:20)
[2023-02-04] MEDS: Ferrous Sulfate 325 MG TAB PO SCH (09:32)
[2023-02-04] MEDS: Folic Acid 1 MG TAB PO SCH (09:33)
[2023-02-04] MEDS: Furosemide 20 MG TAB PO SCH (09:33)
[2023-02-04] MEDS: Valproate Sodium 500 MG, Admixture Fee 1 EACH in Sodium Chloride 0.9% 100 ML IVPB SCH (09:33)
[2023-02-04] MEDS: Amlodipine 5 MG TAB PO SCH (09:33)
[2023-02-04] MEDS: Carvedilol 6.25 MG TAB PO SCH ×2 (09:33→19:02)
[2023-02-04] MEDS: Aspirin 81 mg Enteric Coated Tablet PO SCH (09:33)
[2023-02-04] MEDS: Tamsulosin HCl 0.4 MG CAP PO SCH (09:33)
[2023-02-04] MEDS: hydrALAZINE 25 MG TAB PO SCH ×2 (12:29→15:59)
[2023-02-04] MEDS: Sodium Chloride 0.9% 1,000 ML IV SCH (15:58)
[2023-02-04 16:28] VITALS: TEMP 98.2
[2023-02-04] MEDS ORDERED: Rivaroxaban 10 MG TAB PO SCH (17:00)
[2023-02-04 19:03] VITALS: BP 142/92
== END 2023-02-04 20:05 | disposition home or self-care (01) | DRG 682 ==
LOC: ERS 18:58 → 2SE 23:22 → OBSVTOIN 02-01 11:32
PROVIDERS: ADMIT Internal Medicine; ATTEND Internal Medicine
PROC: 4A00X4Z Measurement of Central Nervous Electrical Activity, External Approach (ICD-10-PCS; principal; 2023-01-31)
DX: N17.9 Acute kidney failure, unspecified (principal); G93.41 Metabolic encephalopathy; I13.0 Hypertensive heart and chronic kidney disease with heart failure and stage 1 through stage 4 chronic kidney disease, or unspecified chronic kidney disease; I50.22 Chronic systolic (congestive) heart failure; I69.351 Hemiplegia and hemiparesis following cerebral infarction affecting right dominant side; I48.11 Longstanding persistent atrial fibrillation; Z51.5 Encounter for palliative care; J44.9 Chronic obstructive pulmonary disease, unspecified; D63.1 Anemia in chronic kidney disease; N18.30 Chronic kidney disease, stage 3 unspecified; G40.909 Epilepsy, unspecified, not intractable, without status epilepticus; I69.320 Aphasia following cerebral infarction; I25.10 Atherosclerotic heart disease of native coronary artery without angina pectoris; E03.9 Hypothyroidism, unspecified; K57.30 Diverticulosis of large intestine without perforation or abscess without bleeding; E78.5 Hyperlipidemia, unspecified; Z79.82 Long term (current) use of aspirin; Z79.899 Other long term (current) drug therapy; Z79.890 Hormone replacement therapy; Z95.1 Presence of aortocoronary bypass graft; Z98.890 Other specified postprocedural states
CPT/HCPCS: 36415; 36416; 70450; 70551; 71045; 74177; 80048; 80053; 80164; 80306; 80307; 81001; 82140; 83605; 83880; 84484; 85025; 87040; 93005; 93306; 94760; 95816; 95819; 96374; 96375; 96376; 97139; G0378; J0360; J0696; J1953; J2060; J2272; J3010; J3490; J7050; Q9967

== ENCOUNTER 2024-11-28 15:19 | Inpatient (IN) | payer MEDICAID, MEDICARE ==
[2024-11-28 15:55] LABS: #Basophils 0.03 10x3/uL (0.0-0.2); #Eosinophils Less than 0.03 10x3/uL (0.0-0.7); #Monocytes 0.72 10x3/uL (0.11-0.59); #Neutrophils 5.19 10x3/uL (1.40-6.50); %Basophils 0.4 % (0.0-1.0); %Eosinophils 0.1 % (0.0-10.0); %Lymphocytes 17.7 % (21.0-51.0); %Monocytes 9.9 % (0.0-10.0); %Neutrophils 71.6 % (42.0-75.0); Hematocrit 31.5 % (42.0-52.0); Hemoglobin 10.4 g/dL (14.0-18.0); Mean Corpuscular Hemoglobin 31.0 pg (27.0-31.0); Mean Corpuscular Volume 93.8 fL (78.0-98.0); Platelet Count 233 10x3/uL (130-400); Red Blood Cell (RBC) Count 3.36 mill/uL (4.70-6.10); White Blood Cell (WBC) Count 7.25 10x3/uL (4.8-10.8)
[2024-11-28] MEDS ORDERED: levETIRAcetam 500 MG (5 mL) VIAL ONE (16:15)
[2024-11-28 16:19] LABS: ALT (SGPT) Less than 7 U/L (Less than 45); AST (SGOT) 20 U/L (11-34); Albumin 3.5 g/dL (3.1-4.5); Alkaline Phosphatase 53 U/L (40-110); Anion Gap 18 mmol/L (10-20); BUN (Urea Nitrogen) 67 mg/dL (8.4-25.7); Bilirubin, Total 0.7 mg/dL (0.3-1.2); Calc. Creatinine Clearance 0 mL/min (70-130); Calcium 9.4 mg/dL (7.8-10.44); Carbon Dioxide 27 mmol/L (23-31); Chloride 104 mmol/L (98-107); Globulin 3.7 g/dL (2.4-3.5); Glucose 123 mg/dL (83-110); Potassium 4.2 mmol/L (3.5-5.1); Sodium 145 mmol/L (136-145)
[2024-11-28 16:22] LABS: CAUTI Indications for Culture Alt mental st,lethar; Glucose, Urine (Dipstick) Normal (Negative); Leukocyte Negative Leu/uL (Negative); Protein, Urine (Dipstick) 100 mg/dL (Neg-Trace); Specific Gravity, Urine 1.010 (1.002-1.036); WBC/HPF 0-3 HPF (0-3)
[2024-11-28 16:32] LABS: Bacteria/HPF Rare-Few HPF (None Seen); RBC/HPF 21-50 HPF (0-3)
[2024-11-28 16:33] LABS: Urine Culture Reflex No No
[2024-11-28] MEDS ORDERED: Ondansetron PF 4 MG/2 ML Vial IVP PRN (18:00)
[2024-11-28 21:25] VITALS: BMI 17.9
[2024-11-28] MEDS: Famotidine/PF 20 mg/2ml Vial SLOW IVP SCH (21:32)
[2024-11-28] MEDS ORDERED: hydrALAZINE 20 MG/ML VIAL SLOW IVP PRN (23:35)
[2024-11-28] MEDS: hydrALAZINE 20 MG/ML VIAL SLOW IVP PRN (23:39)
[2024-11-29 02:29] LABS: Cocaine Metabolite Screen Negative (Negative); THC/Cannabinoid Screen PRELIM POSITIVE (Negative); Tricyclic Screen Negative (Negative)
[2024-11-29 05:11] LABS: #Eosinophils Less than 0.03 10x3/uL (0.0-0.7); #Monocytes 0.77 10x3/uL (0.11-0.59); #Neutrophils 6.93 10x3/uL (1.40-6.50); %Basophils 0.6 % (0.0-1.0); %Eosinophils 0.1 % (0.0-10.0); %Lymphocytes 13.6 % (21.0-51.0); %Monocytes 8.5 % (0.0-10.0); %Neutrophils 76.6 % (42.0-75.0); Hematocrit 31.0 % (42.0-52.0); Hemoglobin 9.5 g/dL (14.0-18.0); Mean Corpuscular Hemoglobin 29.6 pg (27.0-31.0); Mean Corpuscular Volume 96.6 fL (78.0-98.0); Platelet Count 223 10x3/uL (130-400); Red Blood Cell (RBC) Count 3.21 mill/uL (4.70-6.10); White Blood Cell (WBC) Count 9.04 10x3/uL (4.8-10.8)
[2024-11-29 05:12] LABS: #Basophils 0.05 10x3/uL (0.0-0.2)
[2024-11-29 05:38] LABS: Anion Gap 17 mmol/L (10-20); BUN (Urea Nitrogen) 61 mg/dL (8.4-25.7); Calc. Creatinine Clearance 14 mL/min (70-130); Calcium 8.4 mg/dL (7.8-10.44); Carbon Dioxide 23 mmol/L (23-31); Chloride 112 mmol/L (98-107); Glucose 103 mg/dL (83-110); Potassium 4.3 mmol/L (3.5-5.1); Sodium 148 mmol/L (136-145)
[2024-11-29] MEDS ORDERED: Acetaminophen 325 MG TAB PO PRN (08:02)
[2024-11-29] MEDS: Carvedilol 25 MG TAB PO SCH (08:26)
[2024-11-29] MEDS: Enoxaparin 30 MG (0.3 mL) SYRINGE SC SCH (08:28)
[2024-11-29 16:11] LABS: Actual Bicarbonate (HCO3v) 21.4 mEq/L (22-28); Base Excess -4.6 mEq/L (-2.0 to +3.0); Calcium, Ionized (venous) 1.10 mmol/L (1.16-1.32); Chloride (VBG) 109 mmol/L (98-106); Hematocrit-VBG 27 % (42.0-52.0); Hemoglobin (Hb) 9.1 g/dL (12.6-17.4); Sodium 143 mmol/L (133-146)
[2024-11-29 16:12] LABS: Potassium (VBG) 2.45 mmol/L (3.70-5.30)
[2024-11-29] MEDS: Dextrose 50% Abboject 50 ML SYRINGE ONE ×2 (16:50→18:24)
[2024-11-29] MEDS: Potassium Chloride 20 MEQ in Premix 1 BAG IVPB SCH (18:36)
[2024-11-29] MEDS ORDERED: Dextrose 50% Abboject 50 ML SYRINGE ONE (20:00)
[2024-11-29] MEDS: Dextrose 50% Abboject 50 ML SYRINGE SLOW IVP PRN (20:00)
[2024-11-29 20:08] LABS: Actual Bicarbonate (HCO3a) 23.7 mEq/L (22-28); Base Excess (BEa) -2.6 mEq/L (-2.0 to +3.0); CO2 Tension 47.9 mmHg (35.0-45.0); Calcium, Ionized (arterial) 1.19 mmol/L (1.12-1.30); Hematocrit-ABG 28 % (42.0-52.0); Hemoglobin (Hb) 9.5 g/dL (14.0-18.0); O2 Tension (PaO2), arterial 74.0 mmHg (> 70.0); Potassium - ABG Lab 3.18 mmol/L (3.70-5.30); pH, Arterial 7.312 (7.35-7.45)
[2024-11-29 20:09] LABS: ALV-art Gradient 579.125 mmHg (0-20); Puncture Site ART
[2024-11-29] MEDS ORDERED: PNEUMOC 20-VAL CONJ-DIP CRM/PF 0.5 ML SYRINGE IM ONE (20:45)
[2024-11-29 20:51] LABS: #Basophils 0.03 10x3/uL (0.0-0.2); #Eosinophils Less than 0.03 10x3/uL (0.0-0.7); #Monocytes 0.59 10x3/uL (0.11-0.59); #Neutrophils 10.31 10x3/uL (1.40-6.50); %Basophils 0.3 % (0.0-1.0); %Eosinophils 0.0 % (0.0-10.0); %Lymphocytes 3.3 % (21.0-51.0); %Monocytes 5.2 % (0.0-10.0); %Neutrophils 90.8 % (42.0-75.0); Hematocrit 32.2 % (42.0-52.0); Hemoglobin 9.7 g/dL (14.0-18.0); Mean Corpuscular Hemoglobin 30.2 pg (27.0-31.0); Mean Corpuscular Volume 100.3 fL (78.0-98.0); Platelet Count 237 10x3/uL (130-400); Red Blood Cell (RBC) Count 3.21 mill/uL (4.70-6.10); White Blood Cell (WBC) Count 11.35 10x3/uL (4.8-10.8)
[2024-11-29 21:03] LABS: ALT (SGPT) Less than 7 U/L (Less than 45); AST (SGOT) 22 U/L (11-34); Albumin 3.6 g/dL (3.1-4.5); Alkaline Phosphatase 53 U/L (40-110); Anion Gap 15 mmol/L (10-20); BUN (Urea Nitrogen) 57 mg/dL (8.4-25.7); Bilirubin, Total 0.6 mg/dL (0.3-1.2); CK (CPK) 211 U/L (30-200); Calc. Creatinine Clearance 14 mL/min (70-130); Calcium 8.7 mg/dL (7.8-10.44); Carbon Dioxide 21 mmol/L (23-31); Chloride 113 mmol/L (98-107); Globulin 3.3 g/dL (2.4-3.5); Glucose 187 mg/dL (83-110); Magnesium 2.1 mg/dL (1.6-2.6); Potassium 3.3 mmol/L (3.5-5.1); Sodium 146 mmol/L (136-145)
[2024-11-29 21:35] LABS: Actual Bicarbonate (HCO3v) 21.7 mEq/L (22-28); Base Excess -5.6 mEq/L (-2.0 to +3.0); Calcium, Ionized (venous) 1.08 mmol/L (1.16-1.32); Chloride (VBG) 109 mmol/L (98-106); Hematocrit-VBG 32 % (42.0-52.0); Hemoglobin (Hb) 11.0 g/dL (12.6-17.4); Potassium (VBG) 3.33 mmol/L (3.70-5.30); Sodium 144 mmol/L (133-146)
[2024-11-29] MEDS: Magnesium 2 GM/50 ML(in water) 2 GM in Premix 1 BAG IVPB SCH (21:44)
[2024-11-29] MEDS: levETIRAcetam 500 MG (5 mL) VIAL SLOW IVP SCH (21:58)
[2024-11-29] MEDS ORDERED: Potassium Chloride 20 MEQ in Premix 1 BAG IVPB SCH (22:00)
[2024-11-30] MEDS ORDERED: Glucagon 1 MG/ML KIT IM PRN (00:26)
[2024-11-30 00:33] VITALS: BMI 17.9
[2024-11-30] MEDS: levETIRAcetam 500 MG (5 mL) VIAL SLOW IVP SCH ×3 (01:00→20:54)
[2024-11-30] MEDS: Hydrocortisone Sod Succ/PF 100 mg/2 ml Vial IVP SCH ×2 (01:00→01:02)
[2024-11-30 01:04] LABS: Actual Bicarbonate (HCO3v) 20.7 mEq/L (22-28); Base Excess -2.7 mEq/L (-2.0 to +3.0); Calcium, Ionized (venous) 1.08 mmol/L (1.16-1.32); Chloride (VBG) 109 mmol/L (98-106); Hematocrit-VBG 31 % (42.0-52.0); Hemoglobin (Hb) 10.7 g/dL (12.6-17.4); Potassium (VBG) 4.62 mmol/L (3.70-5.30); Sodium 142 mmol/L (133-146)
[2024-11-30] MEDS: Potassium Chloride 20 MEQ in Premix 1 BAG IVPB SCH (01:05)
[2024-11-30 04:08] LABS: Hematocrit 31.9 % (42.0-52.0); Hemoglobin 10.0 g/dL (14.0-18.0); Mean Corpuscular Hemoglobin 30.3 pg (27.0-31.0); Mean Corpuscular Volume 96.7 fL (78.0-98.0); Platelet Count 243 10x3/uL (130-400); Red Blood Cell (RBC) Count 3.30 mill/uL (4.70-6.10); White Blood Cell (WBC) Count 14.47 10x3/uL (4.8-10.8)
[2024-11-30 04:46] LABS: CK (CPK) 207 U/L (30-200)
[2024-11-30 05:03] LABS: Anion Gap 17 mmol/L (10-20); BUN (Urea Nitrogen) 55 mg/dL (8.4-25.7); Calc. Creatinine Clearance 13 mL/min (70-130); Calcium 8.8 mg/dL (7.8-10.44); Carbon Dioxide 22 mmol/L (23-31); Chloride 111 mmol/L (98-107); Glucose 98 mg/dL (83-110); Magnesium 2.6 mg/dL (1.6-2.6); Potassium 5.2 mmol/L (3.5-5.1); Sodium 145 mmol/L (136-145)
[2024-11-30 10:28] LABS: Anion Gap 16 mmol/L (10-20); BUN (Urea Nitrogen) 57 mg/dL (8.4-25.7); Calc. Creatinine Clearance 13 mL/min (70-130); Calcium 8.5 mg/dL (7.8-10.44); Carbon Dioxide 21 mmol/L (23-31); Chloride 109 mmol/L (98-107); Glucose 166 mg/dL (83-110); Potassium 5.2 mmol/L (3.5-5.1); Sodium 141 mmol/L (136-145)
[2024-11-30] MEDS: LevoFLOXacin 750 mg/D5W 750 MG in Premix 1 BAG IVPB SCH (10:32)
[2024-11-30] MEDS: Metoprolol Tartrate 5 MG (5 mL) VIAL IVP SCH (10:34)
[2024-11-30] MEDS: EPOETIN ALFA-EPBX (ESRD) 10,000 UNITS/ML VIAL SC SCH (13:22)
[2024-11-30] MEDS: EPOETIN ALFA-EPBX 10,000 UNITS/ML VIAL SC SCH (13:45)
[2024-11-30] MEDS ORDERED: Sodium Bicarbonate Tab 325 MG TAB PO SCH (15:00)
[2024-12-01 06:05] LABS: Anion Gap 16 mmol/L (10-20); BUN (Urea Nitrogen) 62 mg/dL (8.4-25.7); Calc. Creatinine Clearance 11 mL/min (70-130); Calcium 8.2 mg/dL (7.8-10.44); Carbon Dioxide 19 mmol/L (23-31); Chloride 109 mmol/L (98-107); Glucose 119 mg/dL (83-110); Potassium 5.2 mmol/L (3.5-5.1); Sodium 139 mmol/L (136-145)
[2024-12-02 04:32] LABS: #Basophils Less than 0.03 10x3/uL (0.0-0.2); #Eosinophils 0.03 10x3/uL (0.0-0.7); #Monocytes 0.62 10x3/uL (0.11-0.59); #Neutrophils 5.53 10x3/uL (1.40-6.50); %Basophils 0.1 % (0.0-1.0); %Eosinophils 0.4 % (0.0-10.0); %Lymphocytes 17.0 % (21.0-51.0); %Monocytes 8.3 % (0.0-10.0); %Neutrophils 73.9 % (42.0-75.0); Hematocrit 24.1 % (42.0-52.0); Hemoglobin 7.6 g/dL (14.0-18.0); Mean Corpuscular Hemoglobin 29.9 pg (27.0-31.0); Mean Corpuscular Volume 94.9 fL (78.0-98.0); Platelet Count 166 10x3/uL (130-400); Red Blood Cell (RBC) Count 2.54 mill/uL (4.70-6.10); White Blood Cell (WBC) Count 7.48 10x3/uL (4.8-10.8)
[2024-12-02 04:48] LABS: Anion Gap 11 mmol/L (10-20); BUN (Urea Nitrogen) 63 mg/dL (8.4-25.7); Calc. Creatinine Clearance 11 mL/min (70-130); Calcium 7.8 mg/dL (7.8-10.44); Carbon Dioxide 24 mmol/L (23-31); Chloride 109 mmol/L (98-107); Glucose 82 mg/dL (83-110); Potassium 4.3 mmol/L (3.5-5.1); Sodium 140 mmol/L (136-145)
[2024-12-02] MEDS: LevoFLOXacin 500 mg/D5W 500 MG in Premix 1 BAG IVPB SCH (09:33)
[2024-12-02] MEDS: EPOETIN ALFA-EPBX (ESRD) 10,000 UNITS/ML VIAL SC SCH (13:50)
[2024-12-03 04:19] LABS: Anion Gap 7 mmol/L (10-20); BUN (Urea Nitrogen) 70 mg/dL (8.4-25.7); Calc. Creatinine Clearance 12 mL/min (70-130); Calcium 7.3 mg/dL (7.8-10.44); Carbon Dioxide 24 mmol/L (23-31); Glucose 103 mg/dL (83-110); Potassium 4.1 mmol/L (3.5-5.1); Sodium 138 mmol/L (136-145)
[2024-12-03 04:46] LABS: Chloride 105 mmol/L (98-107)
[2024-12-03 10:03] LABS: #Basophils 0.03 10x3/uL (0.0-0.2); #Eosinophils 0.16 10x3/uL (0.0-0.7); #Monocytes 0.64 10x3/uL (0.11-0.59); #Neutrophils 6.43 10x3/uL (1.40-6.50); %Basophils 0.4 % (0.0-1.0); %Eosinophils 1.9 % (0.0-10.0); %Lymphocytes 12.9 % (21.0-51.0); %Monocytes 7.6 % (0.0-10.0); %Neutrophils 76.3 % (42.0-75.0); Hematocrit 24.8 % (42.0-52.0); Hemoglobin 8.2 g/dL (14.0-18.0); Mean Corpuscular Hemoglobin 30.9 pg (27.0-31.0); Mean Corpuscular Volume 93.6 fL (78.0-98.0); Platelet Count 190 10x3/uL (130-400); Red Blood Cell (RBC) Count 2.65 mill/uL (4.70-6.10); White Blood Cell (WBC) Count 8.43 10x3/uL (4.8-10.8)
[2024-12-03 17:22] VITALS: BP 150/97; TEMP 98
== END 2024-12-03 19:46 | disposition home or self-care (01) | DRG 100 ==
LOC: ERS 15:19 → 2SE 19:30 → OBSVTOIN 19:39 → PCU 11-29 21:00
PROVIDERS: ADMIT Hospitalist; ATTEND Internal Medicine
PROC: XX20X89 Monitoring of Brain Electrical Activity, Computer-aided Detection and Notification, New Technology Group 9 (ICD-10-PCS; principal; 2024-11-28)
PROC: 5A09357 Assistance with Respiratory Ventilation, Less than 24 Consecutive Hours, Continuous Positive Airway Pressure (ICD-10-PCS; 2024-11-29)
DX: R56.9 Unspecified convulsions (principal); G93.41 Metabolic encephalopathy; N17.9 Acute kidney failure, unspecified; N18.4 Chronic kidney disease, stage 4 (severe); E87.0 Hyperosmolality and hypernatremia; E87.20 Acidosis, unspecified; J44.9 Chronic obstructive pulmonary disease, unspecified; I50.9 Heart failure, unspecified; Z98.890 Other specified postprocedural states; Z95.1 Presence of aortocoronary bypass graft; I25.10 Atherosclerotic heart disease of native coronary artery without angina pectoris; D64.9 Anemia, unspecified; I48.0 Paroxysmal atrial fibrillation; I11.0 Hypertensive heart disease with heart failure; E87.6 Hypokalemia; E16.1 Other hypoglycemia; R13.12 Dysphagia, oropharyngeal phase; E87.5 Hyperkalemia; Z79.899 Other long term (current) drug therapy; Z79.890 Hormone replacement therapy
CPT/HCPCS: 36415; 36416; 51701; 70450; 70551; 71045; 72125; 74230; 76770; 80048; 80053; 80177; 80306; 81001; 82533; 82550; 82805; 83036; 83605; 83735; 84100; 84146; 85025; 85027; 93005; 93010; 93970; 94660; 94760; 95700; 95705; 95711; 95957; 96360; 97139; J0360; J1308; J1650; J1720; J1953; J1956; J2919; J3411; J3475; J3480; J7030; J7042; J7070; J7999; Q5105

== ENCOUNTER 2024-12-07 13:36 | Inpatient (IN) | payer MEDICARE ==
[2024-12-07 14:54] LABS: #Basophils 0.03 10x3/uL (0.0-0.2); #Eosinophils 0.32 10x3/uL (0.0-0.7); #Monocytes 0.79 10x3/uL (0.11-0.59); #Neutrophils 13.23 10x3/uL (1.40-6.50); %Basophils 0.2 % (0.0-1.0); %Eosinophils 2.1 % (0.0-10.0); %Lymphocytes 3.9 % (21.0-51.0); %Monocytes 5.3 % (0.0-10.0); %Neutrophils 87.9 % (42.0-75.0); Hematocrit 28.1 % (42.0-52.0); Hemoglobin 8.6 g/dL (14.0-18.0); Mean Corpuscular Hemoglobin 30.2 pg (27.0-31.0); Mean Corpuscular Volume 98.6 fL (78.0-98.0); Platelet Count 251 10x3/uL (130-400); Red Blood Cell (RBC) Count 2.85 mill/uL (4.70-6.10); White Blood Cell (WBC) Count 15.04 10x3/uL (4.8-10.8)
[2024-12-07 15:05] LABS: Lipase 26 U/L (8-78)
[2024-12-07 15:08] LABS: Acetaminophen Less than 10 mcg/mL (Less than 10); Salicylate Less than 8.0 mg/dL (Less than 8.0)
[2024-12-07 15:09] LABS: ALT (SGPT) 10 U/L (Less than 45); AST (SGOT) 15 U/L (11-34); Albumin 3.0 g/dL (3.1-4.5); Alkaline Phosphatase 63 U/L (40-110); Anion Gap 18 mmol/L (10-20); BUN (Urea Nitrogen) 68 mg/dL (8.4-25.7); Bilirubin, Total 0.6 mg/dL (0.3-1.2); CK (CPK) 34 U/L (30-200); Calc. Creatinine Clearance 0 mL/min (70-130); Calcium 8.4 mg/dL (7.8-10.44); Carbon Dioxide 27 mmol/L (23-31); Chloride 106 mmol/L (98-107); Globulin 3.2 g/dL (2.4-3.5); Glucose 115 mg/dL (83-110); Potassium 4.5 mmol/L (3.5-5.1); Sodium 146 mmol/L (136-145)
[2024-12-07 17:40] LABS: Bacteria/HPF None Seen HPF (None Seen); CAUTI Indications for Culture Acute Hematuria; Glucose, Urine (Dipstick) Normal (Negative); Leukocyte Negative Leu/uL (Negative); Protein, Urine (Dipstick) 100 mg/dL (Neg-Trace); Specific Gravity, Urine 1.014 (1.002-1.036); WBC/HPF 0-3 HPF (0-3)
[2024-12-07 17:41] LABS: Urine Culture Reflex No No
[2024-12-07 17:49] LABS: Cocaine Metabolite Screen Negative (Negative); THC/Cannabinoid Screen Negative (Negative); Tricyclic Screen Negative (Negative)
[2024-12-07] MEDS ORDERED: Calcium Carbonate 500 MG ChewTAB PO PRN (20:13)
[2024-12-07] MEDS ORDERED: Senokot S 8.6-50 MG TAB PO PRN (20:13)
[2024-12-07] MEDS ORDERED: Ondansetron PF 4 MG/2 ML Vial IVP PRN (20:13)
[2024-12-07] MEDS ORDERED: Electrolyte Replacement Protocol 1 EACH FS SCH (20:15)
[2024-12-07] MEDS: Acetaminophen 325 MG TAB PO PRN (21:52)
[2024-12-07] MEDS: levETIRAcetam 500 MG TAB PO SCH (21:52)
[2024-12-07 23:21] LABS: Anion Gap 18 mmol/L (10-20); BUN (Urea Nitrogen) 63 mg/dL (8.4-25.7); Calc. Creatinine Clearance 12 mL/min (70-130); Calcium 8.3 mg/dL (7.8-10.44); Carbon Dioxide 26 mmol/L (23-31); Chloride 108 mmol/L (98-107); Glucose 96 mg/dL (83-110); Potassium 4.4 mmol/L (3.5-5.1); Sodium 148 mmol/L (136-145)
[2024-12-08 05:28] LABS: #Basophils Less than 0.03 10x3/uL (0.0-0.2); #Eosinophils 0.36 10x3/uL (0.0-0.7); #Monocytes 0.81 10x3/uL (0.11-0.59); #Neutrophils 11.48 10x3/uL (1.40-6.50); %Basophils 0.1 % (0.0-1.0); %Eosinophils 2.7 % (0.0-10.0); %Lymphocytes 5.3 % (21.0-51.0); %Monocytes 6.0 % (0.0-10.0); %Neutrophils 85.0 % (42.0-75.0); Hematocrit 28.3 % (42.0-52.0); Hemoglobin 8.6 g/dL (14.0-18.0); Mean Corpuscular Hemoglobin 30.3 pg (27.0-31.0); Mean Corpuscular Volume 99.6 fL (78.0-98.0); Platelet Count 248 10x3/uL (130-400); Red Blood Cell (RBC) Count 2.84 mill/uL (4.70-6.10); White Blood Cell (WBC) Count 13.51 10x3/uL (4.8-10.8)
[2024-12-08 05:44] LABS: ALT (SGPT) 8 U/L (Less than 45); AST (SGOT) 12 U/L (11-34); Albumin 2.8 g/dL (3.1-4.5); Alkaline Phosphatase 58 U/L (40-110); Anion Gap 18 mmol/L (10-20); BUN (Urea Nitrogen) 64 mg/dL (8.4-25.7); Bilirubin, Total 0.4 mg/dL (0.3-1.2); Calc. Creatinine Clearance 12 mL/min (70-130); Calcium 8.4 mg/dL (7.8-10.44); Carbon Dioxide 26 mmol/L (23-31); Chloride 109 mmol/L (98-107); Globulin 3.3 g/dL (2.4-3.5); Glucose 128 mg/dL (83-110); Magnesium 2.3 mg/dL (1.6-2.6); Potassium 4.1 mmol/L (3.5-5.1); Sodium 149 mmol/L (136-145)
[2024-12-08 06:06] LABS: T4 6.49 ug/dL (4.87-11.72); Thyroid Stimulating Hormone 4.2223 uIU/mL (0.35-4.94)
[2024-12-08] MEDS: Carvedilol 6.25 MG TAB PO SCH (08:36)
[2024-12-08] MEDS: Aspirin 81 mg Enteric Coated Tablet PO SCH (08:36)
[2024-12-08] MEDS: Thiamine 100 MG TAB PO SCH (08:36)
[2024-12-08] MEDS: Pantoprazole 40 MG DR.TAB PO SCH (08:36)
[2024-12-08] MEDS: Enoxaparin 30 MG (0.3 mL) SYRINGE SC SCH (08:37)
[2024-12-08 09:46] LABS: Osmolality, Serum 320 mOsm/kg (280-301)
[2024-12-08 13:11] LABS: Osmolality, Urine 410 mOsm/kg (50-1200)
[2024-12-08] MEDS: levETIRAcetam 500 MG (5 mL) VIAL SLOW IVP SCH ×2 (14:59→21:03)
[2024-12-08] MEDS: Furosemide 20 MG (2 mL) VIAL SLOW IVP SCH (22:27)
[2024-12-08 22:29] LABS: #Basophils 0.03 10x3/uL (0.0-0.2); #Eosinophils 0.37 10x3/uL (0.0-0.7); #Monocytes 0.71 10x3/uL (0.11-0.59); #Neutrophils 11.07 10x3/uL (1.40-6.50); %Basophils 0.2 % (0.0-1.0); %Eosinophils 2.9 % (0.0-10.0); %Lymphocytes 5.5 % (21.0-51.0); %Monocytes 5.5 % (0.0-10.0); %Neutrophils 85.2 % (42.0-75.0); Hematocrit 30.7 % (42.0-52.0); Hemoglobin 9.3 g/dL (14.0-18.0); Mean Corpuscular Hemoglobin 30.5 pg (27.0-31.0); Mean Corpuscular Volume 100.7 fL (78.0-98.0); Platelet Count 174 10x3/uL (130-400); Red Blood Cell (RBC) Count 3.05 mill/uL (4.70-6.10); White Blood Cell (WBC) Count 12.98 10x3/uL (4.8-10.8)
[2024-12-08 22:53] LABS: Actual Bicarbonate (HCO3a) 27.3 mEq/L (22-28); Base Excess (BEa) 0.4 mEq/L (-2.0 to +3.0); CO2 Tension 54.8 mmHg (35.0-45.0); Calcium, Ionized (arterial) 1.14 mmol/L (1.12-1.30); Hematocrit-ABG 34 % (42.0-52.0); Hemoglobin (Hb) 11.4 g/dL (14.0-18.0); Potassium - ABG Lab 4.11 mmol/L (3.70-5.30); pH, Arterial 7.316 (7.35-7.45)
[2024-12-08 22:55] LABS: O2 Tension (PaO2), arterial 38.3 mmHg (> 70.0)
[2024-12-08 22:57] LABS: Puncture Site Left Radial artery
[2024-12-08 22:58] LABS: ALV-art Gradient 606.200 mmHg (0-20)
[2024-12-09 00:21] LABS: ALT (SGPT) 8 U/L (Less than 45); AST (SGOT) 12 U/L (11-34); Albumin 2.8 g/dL (3.1-4.5); Alkaline Phosphatase 57 U/L (40-110); Anion Gap 14 mmol/L (10-20); BUN (Urea Nitrogen) 61 mg/dL (8.4-25.7); Bilirubin, Total 0.5 mg/dL (0.3-1.2); Calc. Creatinine Clearance 13 mL/min (70-130); Calcium 8.5 mg/dL (7.8-10.44); Carbon Dioxide 26 mmol/L (23-31); Chloride 109 mmol/L (98-107); Globulin 3.8 g/dL (2.4-3.5); Glucose 115 mg/dL (83-110); Potassium 4.1 mmol/L (3.5-5.1); Sodium 145 mmol/L (136-145)
[2024-12-09 05:26] LABS: #Basophils Less than 0.03 10x3/uL (0.0-0.2); #Eosinophils 0.22 10x3/uL (0.0-0.7); #Monocytes 0.68 10x3/uL (0.11-0.59); #Neutrophils 10.60 10x3/uL (1.40-6.50); %Basophils 0.2 % (0.0-1.0); %Eosinophils 1.8 % (0.0-10.0); %Lymphocytes 5.5 % (21.0-51.0); %Monocytes 5.5 % (0.0-10.0); %Neutrophils 86.5 % (42.0-75.0); Hematocrit 28.7 % (42.0-52.0); Hemoglobin 8.8 g/dL (14.0-18.0); Mean Corpuscular Hemoglobin 30.2 pg (27.0-31.0); Mean Corpuscular Volume 98.6 fL (78.0-98.0); Platelet Count 249 10x3/uL (130-400); Red Blood Cell (RBC) Count 2.91 mill/uL (4.70-6.10); White Blood Cell (WBC) Count 12.26 10x3/uL (4.8-10.8)
[2024-12-09 05:51] LABS: Anion Gap 14 mmol/L (10-20); BUN (Urea Nitrogen) 60 mg/dL (8.4-25.7); Calc. Creatinine Clearance 13 mL/min (70-130); Calcium 8.5 mg/dL (7.8-10.44); Carbon Dioxide 25 mmol/L (23-31); Chloride 111 mmol/L (98-107); Glucose 98 mg/dL (83-110); Potassium 4.0 mmol/L (3.5-5.1); Sodium 146 mmol/L (136-145)
[2024-12-09] MEDS: Mupirocin 1 GM TUBE NASAL DECOLONIZATION NASAL SCH (08:29)
[2024-12-09] MEDS: Pantoprazole 40 MG VIAL IVP SCH (09:34)
[2024-12-09] MEDS: cefTRIAXone\\ROCEPHIN 1 GM in Sodium Chloride 0.9% 100 ML IVPB SCH (09:35)
[2024-12-09] MEDS: Azithromycin 500 MG in Sodium Chloride 0.9% 250 ML 250 ML IVPB SCH (10:23)
[2024-12-10 05:06] LABS: #Basophils Less than 0.03 10x3/uL (0.0-0.2); #Eosinophils 0.06 10x3/uL (0.0-0.7); %Eosinophils 0.5 % (0.0-10.0); Mean Corpuscular Hemoglobin 30.3 pg (27.0-31.0)
[2024-12-10 05:17] LABS: Anion Gap 13 mmol/L (10-20); BUN (Urea Nitrogen) 58 mg/dL (8.4-25.7); Calc. Creatinine Clearance 13 mL/min (70-130); Calcium 8.4 mg/dL (7.8-10.44); Carbon Dioxide 25 mmol/L (23-31); Chloride 113 mmol/L (98-107); Glucose 144 mg/dL (83-110); Potassium 4.1 mmol/L (3.5-5.1); Sodium 147 mmol/L (136-145)
[2024-12-10 05:46] LABS: #Monocytes 0.62 10x3/uL (0.11-0.59); #Neutrophils 11.78 10x3/uL (1.40-6.50); %Basophils 0.2 % (0.0-1.0); %Lymphocytes 4.1 % (21.0-51.0); %Monocytes 4.7 % (0.0-10.0); %Neutrophils 90.0 % (42.0-75.0); Hematocrit 25.6 % (42.0-52.0); Hemoglobin 8.0 g/dL (14.0-18.0); Mean Corpuscular Volume 97.0 fL (78.0-98.0); Platelet Count 228 10x3/uL (130-400); Red Blood Cell (RBC) Count 2.64 mill/uL (4.70-6.10); White Blood Cell (WBC) Count 13.07 10x3/uL (4.8-10.8)
[2024-12-11 05:57] LABS: #Basophils 0.03 10x3/uL (0.0-0.2); #Eosinophils 0.61 10x3/uL (0.0-0.7); #Monocytes 0.78 10x3/uL (0.11-0.59); #Neutrophils 9.29 10x3/uL (1.40-6.50); %Basophils 0.3 % (0.0-1.0); %Eosinophils 5.3 % (0.0-10.0); %Lymphocytes 7.0 % (21.0-51.0); %Monocytes 6.7 % (0.0-10.0); %Neutrophils 80.3 % (42.0-75.0); Hematocrit 26.9 % (42.0-52.0); Hemoglobin 7.9 g/dL (14.0-18.0); Mean Corpuscular Hemoglobin 29.4 pg (27.0-31.0); Mean Corpuscular Volume 100.0 fL (78.0-98.0); Platelet Count 203 10x3/uL (130-400); Red Blood Cell (RBC) Count 2.69 mill/uL (4.70-6.10); White Blood Cell (WBC) Count 11.57 10x3/uL (4.8-10.8)
[2024-12-11 06:18] LABS: Anion Gap 17 mmol/L (10-20); BUN (Urea Nitrogen) 58 mg/dL (8.4-25.7); Calc. Creatinine Clearance 13 mL/min (70-130); Calcium 8.2 mg/dL (7.8-10.44); Carbon Dioxide 23 mmol/L (23-31); Chloride 109 mmol/L (98-107); Glucose 100 mg/dL (83-110); Potassium 3.9 mmol/L (3.5-5.1); Sodium 145 mmol/L (136-145)
[2024-12-11] MEDS: cloNIDine 0.2mg/24 Hour PATCH TD SCH (10:03)
[2024-12-12 05:53] LABS: #Basophils Less than 0.03 10x3/uL (0.0-0.2); #Eosinophils 0.70 10x3/uL (0.0-0.7); #Monocytes 0.58 10x3/uL (0.11-0.59); #Neutrophils 6.21 10x3/uL (1.40-6.50); %Basophils 0.2 % (0.0-1.0); %Eosinophils 8.2 % (0.0-10.0); %Lymphocytes 11.0 % (21.0-51.0); %Monocytes 6.8 % (0.0-10.0); %Neutrophils 73.2 % (42.0-75.0); Hematocrit 24.4 % (42.0-52.0); Hemoglobin 7.4 g/dL (14.0-18.0); Mean Corpuscular Hemoglobin 29.4 pg (27.0-31.0); Mean Corpuscular Volume 96.8 fL (78.0-98.0); Platelet Count 207 10x3/uL (130-400); Red Blood Cell (RBC) Count 2.52 mill/uL (4.70-6.10); White Blood Cell (WBC) Count 8.49 10x3/uL (4.8-10.8)
[2024-12-12 06:11] LABS: Anion Gap 11 mmol/L (10-20); BUN (Urea Nitrogen) 57 mg/dL (8.4-25.7); Calc. Creatinine Clearance 13 mL/min (70-130); Calcium 8.0 mg/dL (7.8-10.44); Carbon Dioxide 23 mmol/L (23-31); Chloride 111 mmol/L (98-107); Glucose 105 mg/dL (83-110); Potassium 3.9 mmol/L (3.5-5.1); Sodium 141 mmol/L (136-145)
[2024-12-13 06:07] VITALS: BMI 18.8
[2024-12-13 06:41] LABS: #Basophils 0.03 10x3/uL (0.0-0.2); #Eosinophils 0.69 10x3/uL (0.0-0.7); #Monocytes 0.49 10x3/uL (0.11-0.59); #Neutrophils 4.04 10x3/uL (1.40-6.50); %Basophils 0.5 % (0.0-1.0); %Eosinophils 11.0 % (0.0-10.0); %Lymphocytes 15.9 % (21.0-51.0); %Monocytes 7.8 % (0.0-10.0); %Neutrophils 64.0 % (42.0-75.0); Hematocrit 24.6 % (42.0-52.0); Hemoglobin 7.4 g/dL (14.0-18.0); Mean Corpuscular Hemoglobin 29.5 pg (27.0-31.0); Mean Corpuscular Volume 98.0 fL (78.0-98.0); Platelet Count 200 10x3/uL (130-400); Red Blood Cell (RBC) Count 2.51 mill/uL (4.70-6.10); White Blood Cell (WBC) Count 6.30 10x3/uL (4.8-10.8)
[2024-12-13 07:01] LABS: Anion Gap 10 mmol/L (10-20); BUN (Urea Nitrogen) 51 mg/dL (8.4-25.7); Calc. Creatinine Clearance 14 mL/min (70-130); Calcium 7.6 mg/dL (7.8-10.44); Carbon Dioxide 24 mmol/L (23-31); Chloride 107 mmol/L (98-107); Glucose 95 mg/dL (83-110); Potassium 3.7 mmol/L (3.5-5.1); Sodium 137 mmol/L (136-145)
[2024-12-14 00:03] VITALS: BMI 18.8
[2024-12-14 05:17] LABS: #Basophils Less than 0.03 10x3/uL (0.0-0.2); #Eosinophils 0.95 10x3/uL (0.0-0.7); #Monocytes 0.41 10x3/uL (0.11-0.59); #Neutrophils 3.18 10x3/uL (1.40-6.50); %Basophils 0.2 % (0.0-1.0); %Eosinophils 18.0 % (0.0-10.0); %Lymphocytes 12.7 % (21.0-51.0); %Monocytes 7.8 % (0.0-10.0); %Neutrophils 60.4 % (42.0-75.0); Hematocrit 22.3 % (42.0-52.0); Hemoglobin 6.7 g/dL (14.0-18.0); Mean Corpuscular Hemoglobin 29.1 pg (27.0-31.0); Mean Corpuscular Volume 97.0 fL (78.0-98.0); Platelet Count 178 10x3/uL (130-400); Red Blood Cell (RBC) Count 2.30 mill/uL (4.70-6.10); White Blood Cell (WBC) Count 5.27 10x3/uL (4.8-10.8)
[2024-12-14 05:36] LABS: Anion Gap 10 mmol/L (10-20); BUN (Urea Nitrogen) 50 mg/dL (8.4-25.7); Calc. Creatinine Clearance 14 mL/min (70-130); Calcium 7.0 mg/dL (7.8-10.44); Carbon Dioxide 24 mmol/L (23-31); Chloride 104 mmol/L (98-107); Glucose 105 mg/dL (83-110); Potassium 3.4 mmol/L (3.5-5.1); Sodium 135 mmol/L (136-145)
[2024-12-15 05:23] LABS: #Basophils 0.03 10x3/uL (0.0-0.2); #Eosinophils 1.21 10x3/uL (0.0-0.7); #Monocytes 0.45 10x3/uL (0.11-0.59); #Neutrophils 3.64 10x3/uL (1.40-6.50); %Basophils 0.5 % (0.0-1.0); %Eosinophils 19.2 % (0.0-10.0); %Lymphocytes 14.0 % (21.0-51.0); %Monocytes 7.1 % (0.0-10.0); %Neutrophils 57.8 % (42.0-75.0); Hematocrit 26.2 % (42.0-52.0); Hemoglobin 8.2 g/dL (14.0-18.0); Mean Corpuscular Hemoglobin 29.8 pg (27.0-31.0); Mean Corpuscular Volume 95.3 fL (78.0-98.0); Platelet Count 187 10x3/uL (130-400); Red Blood Cell (RBC) Count 2.75 mill/uL (4.70-6.10); White Blood Cell (WBC) Count 6.30 10x3/uL (4.8-10.8)
[2024-12-15 05:43] LABS: Anion Gap 10 mmol/L (10-20); BUN (Urea Nitrogen) 50 mg/dL (8.4-25.7); Calc. Creatinine Clearance 13 mL/min (70-130); Calcium 7.1 mg/dL (7.8-10.44); Carbon Dioxide 23 mmol/L (23-31); Chloride 105 mmol/L (98-107); Glucose 92 mg/dL (83-110); Magnesium 2.1 mg/dL (1.6-2.6); Potassium 3.6 mmol/L (3.5-5.1); Sodium 134 mmol/L (136-145)
[2024-12-15 08:59] VITALS: BP 151/82; TEMP 97.4
== END 2024-12-15 18:31 | DRG 70 ==
LOC: SUATTDRO 13:36 → ERS 13:36 → T4-B 19:52 → OBSVTOIN 12-08 08:09 → CCU 12-08 23:36 → T4-A 12-11 10:34
PROVIDERS: ADMIT Internal Medicine; ATTEND Internal Medicine
PROC: 4A033R1 Measurement of Arterial Saturation, Peripheral, Percutaneous Approach (ICD-10-PCS; principal; 2024-12-08)
PROC: 5A09357 Assistance with Respiratory Ventilation, Less than 24 Consecutive Hours, Continuous Positive Airway Pressure (ICD-10-PCS; 2024-12-09)
PROC: 3E03329 Introduction of Other Anti-infective into Peripheral Vein, Percutaneous Approach (ICD-10-PCS; 2024-12-09)
PROC: 30233N1 Transfusion of Nonautologous Red Blood Cells into Peripheral Vein, Percutaneous Approach (ICD-10-PCS; 2024-12-14)
DX: G93.41 Metabolic encephalopathy (principal); E43 Unspecified severe protein-calorie malnutrition; J96.01 Acute respiratory failure with hypoxia; J96.02 Acute respiratory failure with hypercapnia; E87.0 Hyperosmolality and hypernatremia; N17.9 Acute kidney failure, unspecified; R64 Cachexia; Z68.1 Body mass index [BMI] 19.9 or less, adult; I50.22 Chronic systolic (congestive) heart failure; I48.20 Chronic atrial fibrillation, unspecified; Z66 Do not resuscitate; Z51.5 Encounter for palliative care; G93.89 Other specified disorders of brain; J44.9 Chronic obstructive pulmonary disease, unspecified; E78.5 Hyperlipidemia, unspecified; I25.10 Atherosclerotic heart disease of native coronary artery without angina pectoris; Z95.1 Presence of aortocoronary bypass graft; Z98.890 Other specified postprocedural states; E86.0 Dehydration; R62.7 Adult failure to thrive; G40.909 Epilepsy, unspecified, not intractable, without status epilepticus; I12.9 Hypertensive chronic kidney disease with stage 1 through stage 4 chronic kidney disease, or unspecified chronic kidney disease; R13.12 Dysphagia, oropharyngeal phase; N18.9 Chronic kidney disease, unspecified; B02.9 Zoster without complications; Z79.899 Other long term (current) drug therapy; Z79.890 Hormone replacement therapy; E87.8 Other disorders of electrolyte and fluid balance, not elsewhere classified; E03.9 Hypothyroidism, unspecified
CPT/HCPCS: 36415; 36430; 36600; 70450; 71045; 80048; 80053; 80306; 80307; 81001; 82140; 82550; 82805; 83690; 83735; 83880; 83930; 83935; 84100; 84436; 84443; 84480; 85025; 86850; 86900; 86901; 87040; 87428; 93005; 93010; 94660; 96360; 96361; 97139; G0378; J0456; J0696; J1650; J1940; J1953; J2470; J2543; J7030; J7042; J7050; J7070; P9016

== ENCOUNTER 2024-12-27 07:10 | Inpatient (IN) | payer MEDICARE ==
[2024-12-27] MEDS ORDERED: Cefepime 2 GM VIAL ONE (07:49)
[2024-12-27 08:00] LABS: #Basophils Less than 0.03 10x3/uL (0.0-0.2); #Eosinophils Less than 0.03 10x3/uL (0.0-0.7); #Monocytes 0.59 10x3/uL (0.11-0.59); #Neutrophils 5.82 10x3/uL (1.40-6.50); %Basophils 0.1 % (0.0-1.0); %Eosinophils 0.0 % (0.0-10.0); %Lymphocytes 10.5 % (21.0-51.0); %Monocytes 8.2 % (0.0-10.0); %Neutrophils 80.6 % (42.0-75.0); Hematocrit 29.7 % (42.0-52.0); Hemoglobin 9.4 g/dL (14.0-18.0); Mean Corpuscular Hemoglobin 30.1 pg (27.0-31.0); Mean Corpuscular Volume 95.2 fL (78.0-98.0); Platelet Count 228 10x3/uL (130-400); Red Blood Cell (RBC) Count 3.12 mill/uL (4.70-6.10); White Blood Cell (WBC) Count 7.22 10x3/uL (4.8-10.8)
[2024-12-27 08:08] LABS: Actual Bicarbonate (HCO3v) 17.6 mEq/L (22-28); Base Excess -6.3 mEq/L (-2.0 to +3.0); Calcium, Ionized (venous) 0.94 mmol/L (1.16-1.32); Chloride (VBG) 103 mmol/L (98-106); Hematocrit-VBG 32 % (42.0-52.0); Hemoglobin (Hb) 10.9 g/dL (12.6-17.4); Sodium 132 mmol/L (133-146)
[2024-12-27 08:55] LABS: Actual Bicarbonate (HCO3v) 18.4 mEq/L (22-28); Base Excess -7.0 mEq/L (-2.0 to +3.0); Calcium, Ionized (venous) 1.03 mmol/L (1.16-1.32); Chloride (VBG) 103 mmol/L (98-106); Hematocrit-VBG 31 % (42.0-52.0); Hemoglobin (Hb) 10.6 g/dL (12.6-17.4); Potassium (VBG) 6.39 mmol/L (3.70-5.30); Sodium 134 mmol/L (133-146)
[2024-12-27] MEDS ORDERED: CALCIUM GLUC 1 GM/NS 50 ML IV Bag ONE (09:07)
[2024-12-27 09:14] LABS: ALT (SGPT) 23 U/L (Less than 45); AST (SGOT) 42 U/L (11-34); Albumin 2.8 g/dL (3.1-4.5); Alkaline Phosphatase 73 U/L (40-110); Anion Gap 20 mmol/L (10-20); BUN (Urea Nitrogen) 58 mg/dL (8.4-25.7); Bilirubin, Total 0.5 mg/dL (0.3-1.2); CK (CPK) 88 U/L (30-200); Calc. Creatinine Clearance 0 mL/min (70-130); Calcium 8.0 mg/dL (7.8-10.44); Carbon Dioxide 16 mmol/L (23-31); Chloride 104 mmol/L (98-107); Globulin 4.0 g/dL (2.4-3.5); Glucose 81 mg/dL (83-110); Magnesium 2.4 mg/dL (1.6-2.6); Potassium 6.5 mmol/L (3.5-5.1); Sodium 133 mmol/L (136-145)
[2024-12-27] MEDS ORDERED: Sodium Bicarb 50 MEQ/50 ML Abboject 8.4% SYRINGE ONE (09:40)
[2024-12-27] MEDS ORDERED: Dextrose 50% Abboject 50 ML SYRINGE ONE (09:40)
[2024-12-27] MEDS ORDERED: Albuterol 2.5 MG (0.5 mL) NEB ONE (09:54)
[2024-12-27] MEDS ORDERED: Melatonin 3 MG TAB PO PRN (10:03)
[2024-12-27] MEDS ORDERED: hydrALAZINE 20 MG/ML VIAL SLOW IVP PRN (10:04)
[2024-12-27 11:14] LABS: Anion Gap 20 mmol/L (10-20); BUN (Urea Nitrogen) 58 mg/dL (8.4-25.7); Calc. Creatinine Clearance 0 mL/min (70-130); Calcium 8.0 mg/dL (7.8-10.44); Carbon Dioxide 19 mmol/L (23-31); Chloride 101 mmol/L (98-107); Glucose 90 mg/dL (83-110); Potassium 6.3 mmol/L (3.5-5.1); Sodium 134 mmol/L (136-145)
[2024-12-27 16:31] LABS: ALT (SGPT) 20 U/L (Less than 45); AST (SGOT) 33 U/L (11-34); Albumin 2.4 g/dL (3.1-4.5); Alkaline Phosphatase 59 U/L (40-110); Anion Gap 19 mmol/L (10-20); BUN (Urea Nitrogen) 58 mg/dL (8.4-25.7); Bilirubin, Total 0.5 mg/dL (0.3-1.2); Calc. Creatinine Clearance 0 mL/min (70-130); Calcium 7.7 mg/dL (7.8-10.44); Carbon Dioxide 16 mmol/L (23-31); Chloride 104 mmol/L (98-107); Globulin 3.3 g/dL (2.4-3.5); Glucose 93 mg/dL (83-110); Potassium 5.9 mmol/L (3.5-5.1); Sodium 133 mmol/L (136-145)
[2024-12-27] MEDS: Albuterol 2.5 MG (3 mL) NEB NEB SCH (18:33)
[2024-12-27] MEDS: Furosemide 100 MG (10 mL) VIAL SLOW IVP SCH (18:41)
[2024-12-27] MEDS: Dextrose 50% Abboject 50 ML SYRINGE SLOW IVP SCH (18:47)
[2024-12-27] MEDS: levETIRAcetam 500 MG (5 mL) VIAL SLOW IVP SCH (20:40)
[2024-12-27] MEDS: Famotidine/PF 20 mg/2ml Vial SLOW IVP SCH (20:40)
[2024-12-27] MEDS: Heparin 5,000 UNITS/ML VIAL SC SCH (20:40)
[2024-12-27 21:52] LABS: ALT (SGPT) 20 U/L (Less than 45); AST (SGOT) 27 U/L (11-34); Albumin 2.7 g/dL (3.1-4.5); Alkaline Phosphatase 64 U/L (40-110); Anion Gap 16 mmol/L (10-20); BUN (Urea Nitrogen) 58 mg/dL (8.4-25.7); Bilirubin, Total 0.5 mg/dL (0.3-1.2); Calc. Creatinine Clearance 0 mL/min (70-130); Calcium 8.1 mg/dL (7.8-10.44); Carbon Dioxide 18 mmol/L (23-31); Chloride 106 mmol/L (98-107); Globulin 3.5 g/dL (2.4-3.5); Glucose 110 mg/dL (83-110); Potassium 5.3 mmol/L (3.5-5.1); Sodium 135 mmol/L (136-145)
[2024-12-27 23:46] VITALS: BMI 19.5
[2024-12-28 04:02] LABS: Anion Gap 17 mmol/L (10-20); BUN (Urea Nitrogen) 59 mg/dL (8.4-25.7); Calc. Creatinine Clearance 14 mL/min (70-130); Calcium 8.0 mg/dL (7.8-10.44); Carbon Dioxide 18 mmol/L (23-31); Cardiac Risk 3.9 (Less than 4.5); Chloride 104 mmol/L (98-107); Cholesterol 131 mg/dl (< 200 Desired); Glucose 99 mg/dL (83-110); HDL Cholesterol 34 mg/dL (>60 Neg Risk); LDL Cholesterol, Calculated 83 mg/dL; Potassium 5.2 mmol/L (3.5-5.1); Sodium 134 mmol/L (136-145); Triglycerides 70 mg/dL (Less than 150)
[2024-12-28] MEDS: levETIRAcetam 500 MG (5 mL) VIAL SLOW IVP SCH (08:31)
[2024-12-28] MEDS: hydrALAZINE 20 MG/ML VIAL SLOW IVP PRN (11:26)
[2024-12-28] MEDS ORDERED: hydrALAZINE 20 MG/ML VIAL SLOW IVP PRN (11:58)
[2024-12-28] MEDS: Glycopyrrolate 0.4 MG/ 2 ML VIAL SLOW IVP SCH (13:08)
[2024-12-28] MEDS: Scopolamine 1 mg/72 hour Patch TD SCH (13:40)
[2024-12-28 14:29] LABS: Potassium (VBG) 6.68 mmol/L (3.70-5.30)
[2024-12-28 16:57] VITALS: BP 139/93; TEMP 98.4
== END 2024-12-28 17:53 | disposition hospice, inpatient (51) | DRG 64 ==
LOC: ERS 07:10 → ERHOLD 10:07 → PCU 17:16
PROVIDERS: ADMIT Family Medicine; ATTEND Internal Medicine
PROC: XX20X89 Monitoring of Brain Electrical Activity, Computer-aided Detection and Notification, New Technology Group 9 (ICD-10-PCS; principal; 2024-12-27)
DX: I63.9 Cerebral infarction, unspecified (principal); G93.41 Metabolic encephalopathy; E87.1 Hypo-osmolality and hyponatremia; N17.9 Acute kidney failure, unspecified; N18.4 Chronic kidney disease, stage 4 (severe); E87.20 Acidosis, unspecified; Z51.5 Encounter for palliative care; Z66 Do not resuscitate; I48.91 Unspecified atrial fibrillation; Z98.890 Other specified postprocedural states; J44.9 Chronic obstructive pulmonary disease, unspecified; I10 Essential (primary) hypertension; I50.9 Heart failure, unspecified; E87.5 Hyperkalemia; E88.09 Other disorders of plasma-protein metabolism, not elsewhere classified; F03.90 Unspecified dementia, unspecified severity, without behavioral disturbance, psychotic disturbance, mood disturbance, and anxiety; R06.03 Acute respiratory distress; Z79.899 Other long term (current) drug therapy
CPT/HCPCS: 36415; 36416; 51701; 70450; 70551; 71045; 80048; 80053; 80061; 82550; 82805; 83605; 83735; 83880; 84484; 85025; 86850; 86900; 86901; 87040; 87086; 87149; 87426; 93005; 94640; 95812; 95813; 95816; 96365; 96367; 96375; J0360; J0613; J0692; J1644; J1815; J1940; J1953; J7042; J7611; J7999